=== PATIENT | female | born 1985 | race African-American/Black ===

== ENCOUNTER 2017-12-06 05:12 | Inpatient (IN) | payer OTHER ==
[2017-12-06 05:25] VITALS: BMI 25.9
--- NOTE | 2017-12-06 08:35 | PDOC ---
History of Present Illness - General Chief Complaint: Vaginal Bleeding Stated Complaint: ABD PAIN,19 WKS PREG Time Seen by Provider: 12/06/17 08:14 History Source: Patient Exam Limitations: No Limitations - History of Present Illness Initial Comments: 12/06/17 08:29 Patient is a 32 y/o female, here for evaluation of bleeding noted this a.m. while urinating. Small droplets noted in toilet. Patient reports that she is 19 weeks unsure thinks her LMP was 07/19/2017 1 para 0. Complaining of intermittent lower abdominal cramping and lower back pain. Patient denies any fever, no nausea vomiting or diarrhea, no other urinary symptoms. No fever. 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 Past Medical History: [Denies]. Allergies: No known allergies Medications: [] Family History: Non-contributory Social History: Denies smoking, alcohol use, or IVDU Vital signs on arrival are [notable for pulse of 102] Review of Systems GENERAL/CONSTITUTIONAL: [No fever or chills. No weakness. No weight change.] HEAD, EYES, EARS, NOSE AND THROAT: [No change in vision. No ear pain or discharge. No sore throat. ] CARDIOVASCULAR: [No chest pain or shortness of breath.] RESPIRATORY: [No cough, wheezing, or hemoptysis.] GASTROINTESTINAL: [No nausea, vomiting, diarrhea or constipation. No rectal bleeding.] GENITOURINARY: [No dysuria, frequency, or change in urination. Single episode of multiple bright red blood drops in toilet, no active bleeding] MUSCULOSKELETAL: [No joint or muscle swelling or pain. No neck or back pain.] SKIN AND BREASTS: [No rash or easy bruising.] NEUROLOGIC: [No headache, vertigo, loss of consciousness, or loss of sensation.] PSYCHIATRIC: [No depression or anxiety.] ENDOCRINE: [No increased thirst. No abnormal weight change.] HEMATOLOGIC/LYMPHATIC: [No anemia, easy bleeding, or history of blood clots.] ALLERGIC/IMMUNOLOGIC: [No hives or skin allergy. No latex allergy.] Physical Exam: GENERAL: [The patient is awake, alert, and fully oriented, in no acute distress. ] EYES: [Pupils equal, round and reactive to light, extraocular movements intact, sclera anicteric, conjunctiva clear.] ENT: [Ears normal, nares patent, oropharynx clear without exudates. Moist mucous membranes. No uvula deviation] NECK: [Normal range of motion, supple without lymphadenopathy, JVD, or masses.] LUNGS: [Breath sounds equal, clear to auscultation bilaterally. No wheezes, and no crackles.] HEART: [Regular rate and rhythm, normal S1 and S2 without murmur, rub or gallop. ] ABDOMEN: [Soft, gravid, nontender, normoactive bowel sounds. No guarding, no rebound. No bruising or abrasions] MUSCULOSKELETAL: [Normal range of motion, no edema. No clubbing or cyanosis. No cords, erythema, or tenderness. No CVA Tenderness with fist palpation.] NEUROLOGICAL: [Cranial nerves II through XII grossly intact. Normal speech, normal gait.] SKIN: [Warm, Dry, normal turgor, no rashes or lesions noted.] Past History - Past Medical History Allergies/Adverse Reactions: Allergies Allergy/AdvReac Type Severity Reaction Status Date / Time No Known Allergies Allergy Verified 12/06/17 05:23 Home Medications: Ambulatory Orders Vit/Iron Fum/Folic AC [ Tablet] 1 tab PO DAILY 12/06/17 - Suicide/Smoking/Psychosocial Hx Smoking History: Never smoked Have you smoked in the past 12 months: No Information on smoking cessation initiated: No Hx Alcohol Use: No Drug/Substance Use Hx: No *Physical Exam - Vital Signs Last Vital Signs Temp Pulse Resp BP Pulse Ox 98.5 F 102 H 14 122/68 100 12/06/17 05:23 12/06/17 05:23 12/06/17 05:23 12/06/17 05:23 12/06/17 05:23 ED Treatment Course - LABORATORY CBC & Chemistry Diagram: 12/06/17 08:27 - RADIOLOGY Radiology Studies Ordered: Category Date Time Status TRANSVAGINAL US PREG [US] Stat Ultrasound 12/06/17 08:15 Ordered Medical Decision Making - Medical Decision Making 12/06/17 08:34 A/P: Patient here for evaluation of abdominal cramping, and single episode of blood droplets in toilet this a.m. Denies any active bleeding. No nausea vomiting or diarrhea, no fever. Plan: Urinalysis, urine culture, beta hCG, CBC, CMP, PT PTT and type and screen ultrasound evaluate 12/06/17 11:25 Ultrasound demonstrated single intrauterine in breech presentation. There is no heart activity compatible with demise. Oligohydramnios with only a trace of amniotic fluid identified. Short uterine cervix without dilatation or funneling. Ceftriaxone 1 g IV ordered. I have called Dr. Patino to discuss case awaiting call back. Laboratory Results - last 24 hr 12/06/17 12/06/17 12/06/17 08:27 08:27 08:27 WBC 23.3 H RBC 4.13 Hgb 10.9 Hct 34.6 MCV 83.7 MCH 26.3 MCHC 31.5 L RDW 14.0 Plt Count 231 MPV 8.2 Neutrophils % 83.3 H Lymphocytes % 9.9 Monocytes % 6.4 Eosinophils % 0.3 Basophils % 0.1 PT with INR 11.10 INR 0.98 Beta HCG, Quant Urine Color Ltyellow Urine Appearance Slcloudy Urine pH 7.0 Ur Specific [place] 1.008 Urine Protein Negative Urine Glucose (UA) Negative Urine Ketones Negative Urine Blood 3+ H Urine Nitrite Negative Urine Bilirubin Negative Urine Urobilinogen Negative Ur Leukocyte Esterase 3+ H Urine WBC (Auto) 228 Urine RBC (Auto) 131 Ur Epithelial Cells Rare Blood Type Antibody Screen 12/06/17 12/06/17 08:27 08:27 WBC RBC Hgb Hct MCV MCH MCHC RDW Plt Count MPV Neutrophils % Lymphocytes % Monocytes % Eosinophils % Basophils % PT with INR INR Beta HCG, Quant 44464.9 Urine Color Urine Appearance Urine pH Ur Specific [place] Urine Protein Urine Glucose (UA) Urine Ketones Urine Blood Urine Nitrite Urine Bilirubin Urine Urobilinogen Ur Leukocyte Esterase Urine WBC (Auto) Urine RBC (Auto) Ur Epithelial Cells Blood Type O POSITIVE Antibody Screen Negative She was elevated white blood cell count with left shift. Leuks are +3 with WBCs of 228. *DC/Admit/Observation/Transfer Diagnosis at time of Disposition: Spontaneous miscarriage Urinary tract infection Qualifiers: Urinary tract infection type: site unspecified Hematuria presence: with hematuria Qualified Code(s): N39.0 - Urinary tract infection, site not specified - Discharge Dispostion Condition at time of disposition: Stable Admit: Yes - Referrals - Patient Instructions - Post Discharge Activity
[2017-12-06 08:57] LABS: URINE APPEARANCE SLCLOUDY; URINE BILIRUBIN NEGATIVE (NEGATIVE); URINE BLOOD 3+ (NEGATIVE); URINE COLOR LTYELLOW; URINE GLUCOSE (UA) NEGATIVE (NEGATIVE); URINE KETONE NEGATIVE (NEGATIVE); URINE NITRITE NEGATIVE (NEGATIVE); URINE PROTEIN NEGATIVE (NEGATIVE); URINE UROBILINOGEN NEGATIVE mg/dL (0.2-1.0)
--- NOTE | 2017-12-06 09:16 | PDOC ---
*Physical Exam - Vital Signs Last Vital Signs Temp Pulse Resp BP Pulse Ox 98.5 F 102 H 14 122/68 100 12/06/17 05:23 12/06/17 05:23 12/06/17 05:23 12/06/17 05:23 12/06/17 05:23 - Physical Exam Comments: 12/06/17 09:15 The patient was examined by [TRANSIT PLANNER Andolino] under my direct supervision. I personally evaluated the patient. I concur with the above findings and the plan of care. ED Treatment Course - LABORATORY CBC & Chemistry Diagram: 12/08/17 12:50 12/08/17 12:50 *DC/Admit/Observation/Transfer Diagnosis at time of Disposition: Spontaneous miscarriage, Urinary tract infection - Discharge Dispostion Condition at time of disposition: Stable - Referrals - Patient Instructions - Post Discharge Activity
[2017-12-06 09:17] LABS: BASO % 0.1 % (0-2.0); EOS % 0.3 % (0-4.5); HEMATOCRIT 34.6 % (32.4-45.2); HEMOGLOBIN 10.9 GM/dL (10.7-15.3); LYMPH % 9.9 % (8-40); MCH 26.3 pg (25.7-33.7); MCHC 31.5 g/dl (32.0-36.0); MEAN CELL VOLUME 83.7 fl (80-96); MEAN PLT VOLUME 8.2 fl (7.5-11.1); MONO % 6.4 % (3.8-10.2); NEUT % 83.3 % (42.8-82.8); PLATELET COUNT 231 K/MM3 (134-434); RBC 4.13 M/mm3 (3.60-5.2); WHITE BLOOD COUNT 23.3 K/mm3 (4.0-10.0)
[2017-12-06 09:28] LABS: URINE LEUK ESTERASE 3+ (NEGATIVE)
[2017-12-06 09:40] LABS: INR 0.98 (0.82-1.09); PROTHROMBIN TIME (PATIENT) 11.1 SEC (9.98-11.88)
[2017-12-06 09:53] LABS: EPI CELLS RARE /HPF (FEW)
[2017-12-06] MEDS ORDERED: CEFTRIAXONE 1 GM in DEXTROSE 5%-WATER - 50 ML IVPB ONE (10:13)
[2017-12-06] MEDS ORDERED: CEFTRIAXONE 1 GM/50 ML BAG ONE (10:45)
[2017-12-06] MEDS ORDERED: ACETAMINOPHEN INJECTION 100 ML IVPB ONE (14:03)
[2017-12-06] MEDS: ELECTROLYTE-148 SOLN 1,000 ML IV SCH (14:10)
[2017-12-06] MEDS ORDERED: ACETAMINOPHEN 1000 MG/100 ML VIAL (NON FORMULARY) IVPB ONE (14:45)
--- NOTE | 2017-12-06 15:13 | HP ---
Past Medical History - Admission Chief Complaint: Rupture of membrane History of Present Illness: 32 yo @ 19 weeks gestation, presents to ER c/o rupture of membrane at home. Patient denied any fever nor shortness of breath. A sonogram was done in ER and there was evidence of demise. Also CBC showed evidence of leukocytosis. Patient was admitted to L&D for IOL. History Source: Patient Limitations to Obtaining History: No Limitations - Past Medical History ...: 1 ...Para: 0 ...Term: 0 ...: 0 ...Spon : 0 ...Induced : 0 ...Multiple Gestation: 0 ...LMP: 07/19/17 ... Weeks Gestation by Dates: 20.0 ...EDC by Dates: 04/25/18 ...EDC by Sono: 04/25/18 - Past Surgical History Past Surgical History: Yes: None Hx Myomectomy: No Hx Transabdominal Cerclage: No - Smoking History Smoking history: Never smoked Have you smoked in the past 12 months: No - Alcohol/Substance Use Hx Alcohol Use: No History of Substance Use: reports: None - Social History Usual Living Arrangement: Yes: With Spouse Home Medications - Allergies Allergies/Adverse Reactions: Allergies Allergy/AdvReac Type Severity Reaction Status Date / Time No Known Allergies Allergy Verified 12/06/17 05:23 - Home Medications Home Medications: Ambulatory Orders Vit/Iron Fum/Folic AC [ Tablet] 1 tab PO DAILY 12/06/17 Review of Systems - Review of Systems Constitutional: reports: Fever. denies: Chills, Night Sweats Eyes: reports: No Symptoms HENT: reports: No Symptoms Neck: reports: No Symptoms Cardiovascular: reports: No Symptoms Respiratory: reports: No Symptoms Gastrointestinal: reports: No Symptoms Genitourinary: reports: Other (Leakage of fluid) Breasts: reports: No Symptoms Reported Musculoskeletal: reports: No Symptoms Neurological: reports: No Symptoms Endocrine: reports: No Symptoms Hematology/Lymphatic: reports: No Symptoms Psychiatric: reports: No Symptoms Pain Intensity: 2 Physical Exam - Maternity Vital Signs: Vital Signs Temperature 103 F H 12/06/17 14:18 Pulse Rate 148 H 12/06/17 14:18 Respiratory Rate 20 12/06/17 14:18 Blood Pressure 116/62 12/06/17 14:18 O2 Sat by Pulse Oximetry (%) 99 12/06/17 13:20 Constitutional: Yes: Well Nourished Eyes: Yes: Conjunctiva Clear HENT: Yes: Atraumatic Neck: Yes: Supple Cardiovascular: Yes: Regular Rate and Rhythm Lungs: Clear to auscultation - Abdominal Exam/OB Number of Fetuses: Single Presentation: Vertex - Vaginal Exam/OB Vaginal Bleediing: No Dilatation (cm): 2 Amniotic Membrane Status: Ruptured Station: -2 - Physical Exam Musculoskeletal: Yes: WNL Extremities: Yes: WNL ...Motor Strength: WNL Psychiatric: Yes: Alert, Oriented - Labs Lab Results: CBC, BMP 12/06/17 08:27 Problem List - Problems (1) demise before 20 weeks with retention of fetus Code(s): O02.1 - MISSED (2) Fever Code(s): R50.9 - FEVER, UNSPECIFIED Qualifiers: Fever type: due to other condition Qualified Code(s): R50.81 - Fever presenting with conditions classified elsewhere Assessment/Plan IUP @ 19 weeks demise Admit to L&D for IOL and IV antibiotic ID consult
[2017-12-06] MEDS ORDERED: PIPERACILLIN/TAZOB 4.5 GM 4.5 GM in DEXTROSE 5%-WATER - 100 ML IVPB ONE (16:15)
[2017-12-06] MEDS ORDERED: BUTORPHANOL TARTRATE 1 MG/ML VIAL ONE ×2 (16:21)
[2017-12-06] MEDS ORDERED: PROMETHAZINE HCL 25 MG/1 ML VIAL ONE (16:22)
[2017-12-06] MEDS ORDERED: MISOPROSTOL 200 MCG TABLET PV SCH (17:30)
[2017-12-06] MEDS ORDERED: BUTORPHANOL TARTRATE 1 MG/ML VIAL IVPUSH ONE (17:45)
[2017-12-06] MEDS ORDERED: PROMETHAZINE HCL 25 MG/1 ML VIAL IVPUSH ONE (17:45)
[2017-12-06] MEDS: OXYTOCIN 20 UNITS in 0.9% NS 20 UNIT/1,000 ML INFUS.BAG IV SCH ×2 (17:50→19:30)
[2017-12-06] MEDS ORDERED: OXYTOCIN 20 UNITS in 0.9% NS 20 UNIT/1,000 ML INFUS.BAG IV ONE ×2 (17:55→19:07)
[2017-12-06] MEDS ORDERED: PIPERACILLIN/TAZOB 4.5 GM/100 ML PREMIX BAG IVPB SCH (18:00)
[2017-12-06] MEDS ORDERED: WITCH HAZEL 50% (TUCKS) 40 PAD/JAR PAD TP PRN (18:05)
[2017-12-06] MEDS ORDERED: BENZOCAINE 20% 57 GM BOTTLE TP PRN (18:05)
[2017-12-06] MEDS ORDERED: BISACODYL 10 MG SUPP.RECT RC PRN (18:05)
[2017-12-06] MEDS ORDERED: METHYLERGONOVINE MALEATE 0.2 MG/1 ML AMP IM PRN (18:05)
[2017-12-06] MEDS ORDERED: BENZOCAINE 28 GM HEMORRHOIDAL OINTMENT TP PRN (18:05)
--- NOTE | 2017-12-06 18:16 | PN ---
Delivery - Delivery Vaginal Delivery: Spontaneous Episiotomy/Laceration: None EBL (cc): 50 Delivery, Single - Stages of Labor Date 1st Stage Initiatied: 12/06/17 Time 1st Stage Initiated: 05:00 Date of Delivery: 12/06/17 Time of Delivery: 17:11 Time Placenta Delivered: 17:50 - Condition of Infant Infant Gender: Female Weight: 9.912 oz Total Hours ROM (Hrs/Mins): 12h 20min - 1 Minute Total Score: 0 5 Minutes Total Score: 0 Remarks - Remarks Remarks: Normal spontaneous vaginal delivery of a demise over intact perineum. Placenta expelled spontaneously with fetus. No laceration noted.
--- NOTE | 2017-12-06 18:55 | CON.ID ---
Consult Consult Specialty:: infectious diseases Reason for Consultation:: fever,sepsis - History of Present Illness Chief Complaint: fever weakness History of Present Illness: 32 yo @ 19 weeks gestation, presents to ER c/o rupture of membrane at home. Patient denied any fever nor shortness of breath. A sonogram was done in ER and there was evidence of demise. Also CBC showed evidence of leukocytosis. Patient was admitted underwent removal of fetus according tot he staff patient had no retained products minimal bleeding patient spiking fever and tachy - History Source History Provided By: Patient Limitations to Obtaining History: No Limitations - Past Surgical History Past Surgical History: Yes: None - Alcohol/Substance Use Hx Alcohol Use: No History of Substance Use: reports: None - Smoking History Smoking history: Never smoked Have you smoked in the past 12 months: No Home Medications - Allergies Allergies/Adverse Reactions: Allergies Allergy/AdvReac Type Severity Reaction Status Date / Time No Known Allergies Allergy Verified 12/06/17 05:23 - Home Medications Home Medications: Ambulatory Orders Vit/Iron Fum/Folic AC [ Tablet] 1 tab PO DAILY 12/06/17 Review of Systems - Review of Systems Constitutional: reports: Fever Eyes: reports: No Symptoms HENT: reports: No Symptoms Neck: reports: No Symptoms Cardiovascular: reports: No Symptoms Respiratory: reports: No Symptoms Gastrointestinal: reports: No Symptoms Genitourinary: reports: No Symptoms Musculoskeletal: reports: No Symptoms Integumentary: reports: No Symptoms Neurological: reports: No Symptoms Endocrine: reports: No Symptoms Hematology/Lymphatic: reports: No Symptoms Psychiatric: reports: No Symptoms Physical Exam Vital Signs: Vital Signs Temperature 99.2 F 12/06/17 18:00 Pulse Rate 123 H 12/06/17 18:45 Respiratory Rate 18 12/06/17 18:45 Blood Pressure 87/57 12/06/17 18:45 O2 Sat by Pulse Oximetry (%) 100 12/06/17 18:45 Constitutional: Yes: Well Nourished, No Distress Eyes: Yes: Conjunctiva Clear Neck: Yes: Supple, Trachea Midline Cardiovascular: Yes: Regular Rate and Rhythm Respiratory: Yes: Regular, CTA Bilaterally Gastrointestinal: Yes: Normal Bowel Sounds, Soft Musculoskeletal: Yes: WNL Extremities: Yes: WNL Neurological: Yes: Alert, Oriented Psychiatric: Yes: Alert, Oriented Labs: CBC, BMP 12/06/17 08:27 Imaging - Results Ultrasound: Report Reviewed Assessment/Plan Problem List - Problems (1) demise before 20 weeks with retention of fetus Code(s): O02.1 - MISSED (2) Fever Code(s): R50.9 - FEVER, UNSPECIFIED Qualifiers: Fever type: due to other condition Qualified Code(s): R50.81 - Fever presenting with conditions classified elsewhere leukocytosis patient has received zosyn plan will continue zosyn will send stat bmp await for all cx reports close monitoring for fevers
[2017-12-06 20:55] LABS: ANION GAP 11 (8-16); BLOOD UREA NITROGEN 5 mg/dL (7-18); CALCIUM 8.5 mg/dL (8.5-10.1); CHLORIDE 102 mmol/L (98-107); CO2 22 mmol/L (21-32); CREATININE 0.8 mg/dL (0.55-1.02); GLUCOSE,RANDOM 77 mg/dL (74-106); POTASSIUM 3.4 mmol/L (3.5-5.1); SODIUM 135 mmol/L (136-145)
--- NOTE | 2017-12-07 00:45 | PN ---
Post Progress Note - Subjective Subjective: 32yo status post delivery of a demise, seen and evaluated. Doing well. She's afebrile. She's on Zosyn and pulse has improved. Post Day: 1 Type of Delivery: Vital Signs: Vital Signs Temperature 98.0 F 12/07/17 00:00 Pulse Rate 104 H 12/07/17 00:00 Respiratory Rate 18 12/07/17 00:00 Blood Pressure 93/61 12/07/17 00:00 O2 Sat by Pulse Oximetry (%) 100 12/06/17 18:45 Breast Exam: Yes: Soft Uterus: Yes: Fundus Firm Lochia: Yes: Rubra Lochia, amount: Small Extremities: Yes: Calves non-tender Perineum: Yes: Intact Activity: Ambulating - Labs Labs: CBC WBC 23.3 K/mm3 (4.0-10.0) H 12/06/17 08:27 RBC 4.13 M/mm3 (3.60-5.2) 12/06/17 08:27 Hgb 10.9 GM/dL (10.7-15.3) 12/06/17 08:27 Hct 34.6 % (32.4-45.2) 12/06/17 08:27 MCV 83.7 fl (80-96) 12/06/17 08:27 MCH 26.3 pg (25.7-33.7) 12/06/17 08:27 MCHC 31.5 g/dl (32.0-36.0) L 12/06/17 08:27 RDW 14.0 % (11.6-15.6) 12/06/17 08:27 Plt Count 231 K/MM3 (134-434) 12/06/17 08:27 MPV 8.2 fl (7.5-11.1) 12/06/17 08:27 Neutrophils % 83.3 % (42.8-82.8) H 12/06/17 08:27 Lymphocytes % 9.9 % (8-40) 12/06/17 08:27 Monocytes % 6.4 % (3.8-10.2) 12/06/17 08:27 Eosinophils % 0.3 % (0-4.5) 12/06/17 08:27 Basophils % 0.1 % (0-2.0) 12/06/17 08:27 Problem List - Problems (1) demise before 20 weeks with retention of fetus Code(s): O02.1 - MISSED (2) Fever Code(s): R50.9 - FEVER, UNSPECIFIED Qualifiers: Fever type: due to other condition Qualified Code(s): R50.81 - Fever presenting with conditions classified elsewhere (3) Status post vaginal delivery Code(s): [id number] - Assessment/Plan Status post delivery of a demise Chorio Amnionitis Fever Continue antibiotic Regular diet F/U ID consult
[2017-12-07] MEDS ORDERED: PIPERACILLIN/TAZOB 3.375 GM 3.375 GM in DEXTROSE 5%-WATER - 100 ML IVPB ONE (02:00)
[2017-12-07 08:34] LABS: HEMATOCRIT 28.2 % (32.4-45.2); MCH 26.6 pg (25.7-33.7); MCHC 31.9 g/dl (32.0-36.0); MEAN CELL VOLUME 83.3 fl (80-96); MEAN PLT VOLUME 8.2 fl (7.5-11.1); PLATELET COUNT 167 K/MM3 (134-434); RBC 3.39 M/mm3 (3.60-5.2); RDW 13.9 % (11.6-15.6)
[2017-12-07 09:01] LABS: WHITE BLOOD COUNT 30.1 K/mm3 (4.0-10.0)
[2017-12-07] MEDS ORDERED: ELECTROLYTE-148 SOLN 1,000 ML IV SCH (09:45)
[2017-12-07] MEDS: PIPERACILLIN/TAZOB 3.375 GM 3.375 GM in DEXTROSE 5%-WATER - 100 ML IVPB SCH ×2 (09:49→18:06)
[2017-12-07] MEDS: ACETAMINOPHEN 325 MG TABLET (FP) PO PRN (09:52)
[2017-12-07] MEDS: IBUPROFEN 600 MG TABLET (FP) PO PRN (09:53)
[2017-12-07 11:49] LABS: ACANTHOCYTES 0; ANISOCYTOSIS 0; HELMET CELLS 0; HOWELL-JOLLY BODIES 0; MACROCYTOSIS 0; OVALOCYTE 0; PLATELET ESTIMATE NORMAL; SICKELED CELLS 0; TARGET CELLS 0; TEAR DROP CELLS 0; TOXIC GRANULATION 0
--- NOTE | 2017-12-07 13:40 | PN ---
Progress Note, Physician History of Present Illness: stable c/o of increased swelling of lips calm - Current Medication List Current Medications: Active Medications Acetaminophen (Tylenol -) 650 mg PO Q3H PRN PRN Reason: PAIN Last Admin: 12/07/17 09:52 Dose: 650 mg Benzocaine (Americaine 20% [place] -) 1 spray TP DAILY PRN PRN Reason: PAIN Benzocaine (Americaine Ointment -) 1 applic TP DAILY PRN PRN Reason: PAIN Bisacodyl (Dulcolax Suppository -) 10 mg RC DAILY PRN PRN Reason: CONSTIPATION Parenteral Electrolytes (Plasma-Lyte 148 -) 1,000 mls @ 125 mls/hr IV ASDIR [facility] Last Admin: 12/06/17 14:10 Dose: 125 mls/hr Oxytocin/Sodium Chloride (Normal Saline+20 Units Oxytocin -) 20 unit in 1,000 mls @ 125 mls/hr IV ASDIR [facility] Last Admin: 12/06/17 19:30 Dose: 125 mls/hr Piperacillin Sod/Tazobactam (Sod 3.375 gm/ Dextrose) 100 mls @ 200 mls/hr IVPB Q8H-IV JEANNINE PRN Reason: Protocol Last Admin: 12/07/17 09:49 Dose: 200 mls/hr Parenteral Electrolytes (Plasma-Lyte 148 -) 1,000 mls @ 125 mls/hr IV ASDIR [facility] Ibuprofen (Motrin -) 600 mg PO Q4H PRN PRN Reason: PAIN Last Admin: 12/07/17 09:53 Dose: 600 mg Methylergonovine Maleate (Methergine Injection -) 0.2 mg IM Q4H PRN PRN Reason: EXCESSIVE BLEEDING (L&D) Senna/Docusate Sodium (Pericolace -) 2 tablet PO HS PRN PRN Reason: CONSTIPATION Witch Marily/Glycerin (Tucks Pads -) 1 pad TP DAILY PRN PRN Reason: PAIN - Objective Vital Signs: Vital Signs Temperature 98 F 12/07/17 10:00 Pulse Rate 97 H 12/07/17 10:00 Respiratory Rate 20 12/07/17 10:00 Blood Pressure 84/48 12/07/17 10:00 O2 Sat by Pulse Oximetry (%) 100 12/06/17 18:45 Constitutional: Yes: No Distress, Calm Neck: Yes: Supple Cardiovascular: Yes: Regular Rate and Rhythm Respiratory: Yes: Regular, CTA Bilaterally Gastrointestinal: Yes: Normal Bowel Sounds, Soft Musculoskeletal: Yes: WNL Extremities: Yes: WNL Neurological: Yes: Alert, Oriented Psychiatric: Yes: Alert, Oriented Labs: CBC, BMP 12/07/17 07:45 12/06/17 20:15 INR, PTT INR 0.98 (0.82-1.09) 12/06/17 08:27 Assessment/Plan Problem List - Problems (1) demise before 20 weeks with retention of fetus Code(s): O02.1 - MISSED (2) Fever Code(s): R50.9 - FEVER, UNSPECIFIED Qualifiers: Fever type: due to other condition Qualified Code(s): R50.81 - Fever presenting with conditions classified elsewhere leukocytosis continue current mgtm await for wbc plan continue current mgmt monitor wbc closely if it increases then we will have to figure out why rest as per primary
[2017-12-07] MEDS: ELECTROLYTE-148 SOLN 1,000 ML IV SCH (18:30)
[2017-12-07] MEDS ORDERED: SENNOSIDES/DOCUSATE COMBO (SENNA PLUS) TABLET (UD) PO PRN (22:00)
[2017-12-08] MEDS: PIPERACILLIN/TAZOB 3.375 GM 3.375 GM in DEXTROSE 5%-WATER - 100 ML IVPB SCH ×3 (01:18→18:29)
--- NOTE | 2017-12-08 12:22 | PN ---
Progress Note, Physician History of Present Illness: stable wbc has increased - Current Medication List Current Medications: Active Medications Acetaminophen (Tylenol -) 650 mg PO Q3H PRN PRN Reason: PAIN Last Admin: 12/07/17 09:52 Dose: 650 mg Benzocaine (Americaine 20% [place] -) 1 spray TP DAILY PRN PRN Reason: PAIN Benzocaine (Americaine Ointment -) 1 applic TP DAILY PRN PRN Reason: PAIN Bisacodyl (Dulcolax Suppository -) 10 mg RC DAILY PRN PRN Reason: CONSTIPATION Parenteral Electrolytes (Plasma-Lyte 148 -) 1,000 mls @ 125 mls/hr IV ASDIR [facility] Last Admin: 12/07/17 18:30 Dose: 125 mls/hr Oxytocin/Sodium Chloride (Normal Saline+20 Units Oxytocin -) 20 unit in 1,000 mls @ 125 mls/hr IV ASDIR [facility] Last Admin: 12/06/17 19:30 Dose: 125 mls/hr Piperacillin Sod/Tazobactam (Sod 3.375 gm/ Dextrose) 100 mls @ 200 mls/hr IVPB Q8H-IV JEANNINE PRN Reason: Protocol Last Admin: 12/08/17 09:09 Dose: 200 mls/hr Parenteral Electrolytes (Plasma-Lyte 148 -) 1,000 mls @ 125 mls/hr IV ASDIR [facility] Last Admin: 12/07/17 10:00 Dose: 125 mls/hr Ibuprofen (Motrin -) 600 mg PO Q4H PRN PRN Reason: PAIN Last Admin: 12/07/17 09:53 Dose: 600 mg Methylergonovine Maleate (Methergine Injection -) 0.2 mg IM Q4H PRN PRN Reason: EXCESSIVE BLEEDING (L&D) Senna/Docusate Sodium (Pericolace -) 2 tablet PO HS PRN PRN Reason: CONSTIPATION Witch Marily/Glycerin (Tucks Pads -) 1 pad TP DAILY PRN PRN Reason: PAIN - Objective Vital Signs: Vital Signs Temperature 97.5 F L 12/08/17 06:00 Pulse Rate 81 12/08/17 06:00 Respiratory Rate 20 12/08/17 06:00 Blood Pressure 96/59 12/08/17 06:00 O2 Sat by Pulse Oximetry (%) 100 12/06/17 18:45 Constitutional: Yes: No Distress, Calm HENT: Yes: Other (swelling of the lips) Cardiovascular: Yes: Regular Rate and Rhythm Respiratory: Yes: Regular, CTA Bilaterally Gastrointestinal: Yes: Normal Bowel Sounds, Soft Musculoskeletal: Yes: WNL Extremities: Yes: WNL Neurological: Yes: Alert, Oriented Psychiatric: Yes: Alert, Oriented Labs: CBC, BMP 12/07/17 07:45 12/06/17 20:15 INR, PTT INR 0.98 (0.82-1.09) 12/06/17 08:27 Assessment/Plan Problem List - Problems (1) demise before 20 weeks with retention of fetus Code(s): O02.1 - MISSED (2) Fever Code(s): R50.9 - FEVER, UNSPECIFIED Qualifiers: Fever type: due to other condition Qualified Code(s): R50.81 - Fever presenting with conditions classified elsewhere leukocytosis wbc keeps plan continue current mgmt will see thw wbc tomorrow and decide
[2017-12-08 13:07] LABS: HEMOGLOBIN 8.8 GM/dL (10.7-15.3); MCHC 31.3 g/dl (32.0-36.0); MEAN CELL VOLUME 83.3 fl (80-96); PLATELET COUNT 208 K/MM3 (134-434); RBC 3.36 M/mm3 (3.60-5.2); RDW 14.3 % (11.6-15.6)
[2017-12-08 13:17] LABS: WHITE BLOOD COUNT 33.2 K/mm3 (4.0-10.0)
[2017-12-08 13:37] LABS: ANION GAP 10 (8-16); BLOOD UREA NITROGEN 13 mg/dL (7-18); CALCIUM 8.2 mg/dL (8.5-10.1); CHLORIDE 106 mmol/L (98-107); CO2 26 mmol/L (21-32); CREATININE 0.7 mg/dL (0.55-1.02); GLUCOSE,RANDOM 121 mg/dL (74-106); POTASSIUM 3.7 mmol/L (3.5-5.1); SODIUM 142 mmol/L (136-145)
[2017-12-08] MEDS: IBUPROFEN 600 MG TABLET (FP) PO PRN (14:57)
[2017-12-08] MEDS: ACETAMINOPHEN 325 MG TABLET (FP) PO PRN (14:57)
[2017-12-08] MEDS: ELECTROLYTE-148 SOLN 1,000 ML IV SCH (15:13)
--- NOTE | 2017-12-08 15:46 | PATH ---
Surgical Pathology Report Patient Name: LIAM GRIFFIN [facility]. Rec. #: [id number] /Age/Gender: 1985 (Age: 32) / F Account: [id number] Location: [facility] OBS/CALL OR CONTACT CENTRE MANAGER Taken: 12/06/2017 Received: 12/07/2017 Reported: 12/08/2017 Physicians: Elizabeth Patino M.D. Specimen(s) Received A: FETUS, WITH DISSECTION B: PLACENTA Clinical History , 20 weeks by dates, 18.2 by sonogram 12/06/17 demise, chorioamnionitis Final Diagnosis A. FETUS, DELIVERY: IMMATURE FEMALE FETUS, 256 GRAMS, WITH AUTOLYTIC CHANGES. NO INTERNAL OR EXTERNAL CONGENITAL ABNORMALITIES IDENTIFIED. B. PLACENTA, DELIVERY: IMMATURE PLACENTA, 101 GRAM, WITH ACUTE CHORIOAMNIONITIS, AREAS OF ACUTE VILLITIS, AND 3 VESSEL UMBILICAL CORD. Electronically Signed Alexis Benson M.D. Gross Description A. received in formalin labeled "fetus," is a 256 g intact fetus. The fetus measures 17 cm from crown to rump and 25 cm from head to toe. Each foot measures 3.1 cm from heel to toe. The anus and nares are patent. The eyelids are fused shut. There is a 6.5 cm in length x 0.5 cm in diameter red-brown, dusky umbilical cord attached. The cord displays 3 vessels. The skin is mildly macerated. The upper and lower extremities are well proportioned, without any bony defects. There are no axial defects and the lumbosacral spine is intact. The heart and lungs are normally positioned and no abnormalities are noted. The abdominal organs are markedly autolyzed. The external genitalia are well formed and that of a female. The brain is markedly autolyzed. Capacitor Pack Press Operator sections are submitted in 5 cassettes as follows: 1-umbilical cord, grams, heart, lungs, thymus; 2-spleen, liver, intestines; 3-ovaries; 4-kidneys/adrenals; 5-brain. B. The specimen is received fresh labeled placenta and is a 101 gram, 11.3 x 8.2 x 1.5 cm. placenta with attached membranes and umbilical cord. The attached membranes are to, thick, cloudy and insert marginally. The red-brown, dusky umbilical cord measures 11.5 cm. in length and averages 0.6 cm. in diameter. The cord inserts eccentrically, 1 cm. to the nearest margin. No true knots or strictures are identified. Cut surface of the umbilical cord reveals 3 vessels. The surface is [place] blue with minimal fibrin deposition and small caliber vessels. The maternal surface is red-brown and intact. Sectioning reveals red-brown, spongy parenchyma. No lesions are identified. Capacitor Pack Press Operator sections are submitted in 4 cassettes as follows: 1- membrane rolls and umbilical cord; 2- 4 - full thickness sections of placenta. 12/07/[address] [facility]12/07/2017
--- NOTE | 2017-12-08 22:46 | PN ---
Progress Note (short form) - Note Progress Note: s/p 19 weeks demised vaginal delivery , pp sepsis doing well ,no c/o does not appear toxic Last Vital Signs Temp Pulse Resp BP Pulse Ox 98 F 82 20 96/50 100 12/08/17 18:00 12/08/17 18:00 12/08/17 18:00 12/08/17 18:00 12/06/17 18:45 CBC, BMP 12/08/17 12:50 12/08/17 12:50 abdomen soft, uterus non tender ,no cva lochia mild plan cont iv antibiotic
[2017-12-09 01:07] LABS: ANISOCYTOSIS 1+
[2017-12-09 01:08] LABS: PLATELET ESTIMATE ADEQUATE
[2017-12-09] MEDS: PIPERACILLIN/TAZOB 3.375 GM 3.375 GM in DEXTROSE 5%-WATER - 100 ML IVPB SCH ×2 (01:35→09:10)
[2017-12-09] MEDS: ELECTROLYTE-148 SOLN 1,000 ML IV SCH (01:35)
[2017-12-09 08:54] LABS: HEMATOCRIT 29.1 % (32.4-45.2); HEMOGLOBIN 9.3 GM/dL (10.7-15.3); MCH 26.8 pg (25.7-33.7); MCHC 32.2 g/dl (32.0-36.0); MEAN CELL VOLUME 83.3 fl (80-96); MEAN PLT VOLUME 8.3 fl (7.5-11.1); PLATELET COUNT 218 K/MM3 (134-434); RBC 3.49 M/mm3 (3.60-5.2); RDW 13.8 % (11.6-15.6); WHITE BLOOD COUNT 21.6 K/mm3 (4.0-10.0)
[2017-12-09 10:13] LABS: PLATELET ESTIMATE NORMAL
--- NOTE | 2017-12-09 14:49 | PN ---
Progress Note, Physician History of Present Illness: stable patient has developed vesicles on the lips wbc trending down - Current Medication List Current Medications: Active Medications Acetaminophen (Tylenol -) 650 mg PO Q3H PRN PRN Reason: PAIN Last Admin: 12/08/17 14:57 Dose: 650 mg Benzocaine (Americaine 20% [place] -) 1 spray TP DAILY PRN PRN Reason: PAIN Benzocaine (Americaine Ointment -) 1 applic TP DAILY PRN PRN Reason: PAIN Bisacodyl (Dulcolax Suppository -) 10 mg RC DAILY PRN PRN Reason: CONSTIPATION Parenteral Electrolytes (Plasma-Lyte 148 -) 1,000 mls @ 125 mls/hr IV [facility] Last Admin: 12/09/17 01:35 Dose: 125 mls/hr Oxytocin/Sodium Chloride (Normal Saline+20 Units Oxytocin -) 20 unit in 1,000 mls @ 125 mls/hr [facility] Last Admin: 12/06/17 19:30 Dose: 125 mls/hr Parenteral Electrolytes (Plasma-Lyte 148 -) 1,000 mls @ 125 mls/hr IV [facility] Last Admin: 12/07/17 10:00 Dose: 125 mls/hr Piperacillin Sod/Tazobactam (Sod 3.375 gm/ Dextrose) 50 mls @ 100 mls/hr IVPB Q8H-IV [facility] PRN Reason: Protocol Ibuprofen (Motrin -) 600 mg PO Q4H PRN PRN Reason: PAIN Last Admin: 12/08/17 14:57 Dose: 600 mg Methylergonovine Maleate (Methergine Injection -) 0.2 mg IM Q4H PRN PRN Reason: EXCESSIVE BLEEDING (L&D) Senna/Docusate Sodium (Pericolace -) 2 tablet PO HS PRN PRN Reason: CONSTIPATION Witch Marily/Glycerin (Tucks Pads -) 1 pad TP DAILY PRN PRN Reason: PAIN - Objective Vital Signs: Vital Signs Temperature 97.7 F 12/09/17 09:00 Pulse Rate 76 12/09/17 09:00 Respiratory Rate 20 12/09/17 09:00 Blood Pressure 121/79 12/09/17 09:00 O2 Sat by Pulse Oximetry (%) 100 12/06/17 18:45 Constitutional: Yes: No Distress, Calm Cardiovascular: Yes: Regular Rate and Rhythm Respiratory: Yes: Regular, CTA Bilaterally Gastrointestinal: Yes: Normal Bowel Sounds, Soft Musculoskeletal: Yes: WNL Extremities: Yes: WNL Neurological: Yes: Alert, Oriented Psychiatric: Yes: Alert, Oriented Labs: CBC, BMP 12/09/17 07:55 12/08/17 12:50 INR, PTT INR 0.98 (0.82-1.09) 12/06/17 08:27 Assessment/Plan Problem List - Problems (1) demise before 20 weeks with retention of fetus Code(s): O02.1 - MISSED (2) Fever Code(s): R50.9 - FEVER, UNSPECIFIED Qualifiers: Fever type: due to other condition Qualified Code(s): R50.81 - Fever presenting with conditions classified elsewhere leukocytosis herpes wbc trending down plan continue current mgmt will add valtrex
[2017-12-09] MEDS: PIPERACILLIN/TAZOB 3.375 GM 3.375 GM in DEXTROSE 5%-WATER - 50 ML IVPB SCH (17:47)
[2017-12-09] MEDS: valACYclovir HCL 500 MG TABLET (FP) PO SCH (22:24)
[2017-12-10] MEDS: PIPERACILLIN/TAZOB 3.375 GM 3.375 GM in DEXTROSE 5%-WATER - 50 ML IVPB SCH ×3 (01:06→17:37)
[2017-12-10] MEDS: valACYclovir HCL 500 MG TABLET (FP) PO SCH ×2 (09:30→21:36)
--- NOTE | 2017-12-10 10:57 | PN ---
Progress Note, Physician History of Present Illness: doing well no complaints swelling of the lips much better wbc trending down - Current Medication List Current Medications: Active Medications Acetaminophen (Tylenol -) 650 mg PO Q3H PRN PRN Reason: PAIN Last Admin: 12/08/17 14:57 Dose: 650 mg Benzocaine (Americaine 20% [place] -) 1 spray TP DAILY PRN PRN Reason: PAIN Benzocaine (Americaine Ointment -) 1 applic TP DAILY PRN PRN Reason: PAIN Bisacodyl (Dulcolax Suppository -) 10 mg RC DAILY PRN PRN Reason: CONSTIPATION Parenteral Electrolytes (Plasma-Lyte 148 -) 1,000 mls @ 125 mls/hr IV [facility] Last Admin: 12/09/17 01:35 Dose: 125 mls/hr Oxytocin/Sodium Chloride (Normal Saline+20 Units Oxytocin -) 20 unit in 1,000 mls @ 125 mls/hr IV [facility] Last Admin: 12/06/17 19:30 Dose: 125 mls/hr Parenteral Electrolytes (Plasma-Lyte 148 -) 1,000 mls @ 125 mls/hr IV [facility] Last Admin: 12/07/17 10:00 Dose: 125 mls/hr Piperacillin Sod/Tazobactam (Sod 3.375 gm/ Dextrose) 50 mls @ 100 mls/hr IVPB Q8H-IV [facility] PRN Reason: Protocol Last Admin: 12/10/17 09:29 Dose: 100 mls/hr Ibuprofen (Motrin -) 600 mg PO Q4H PRN PRN Reason: PAIN Last Admin: 12/08/17 14:57 Dose: 600 mg Methylergonovine Maleate (Methergine Injection -) 0.2 mg IM Q4H PRN PRN Reason: EXCESSIVE BLEEDING (L&D) Senna/Docusate Sodium (Pericolace -) 2 tablet PO HS PRN PRN Reason: CONSTIPATION Valacyclovir HCl (Valtrex -) 500 mg PO BID [facility] Last Admin: 12/10/17 09:30 Dose: 500 mg Witch Marily/Glycerin (Tucks Pads -) 1 pad TP DAILY PRN PRN Reason: PAIN - Objective Vital Signs: Vital Signs Temperature 99.2 F 12/10/17 07:10 Pulse Rate 69 12/10/17 07:10 Respiratory Rate 18 18 07:10 Blood Pressure 135/84 12/10/17 07:10 O2 Sat by Pulse Oximetry (%) 100 12/06/17 18:45 Constitutional: Yes: No Distress, Calm Cardiovascular: Yes: Regular Rate and Rhythm Respiratory: Yes: Regular, CTA Bilaterally Gastrointestinal: Yes: Normal Bowel Sounds, Soft Extremities: Yes: WNL Neurological: Yes: Alert, Oriented Psychiatric: Yes: Alert, Oriented Labs: CBC, BMP 12/09/17 07:55 12/08/17 12:50 INR, PTT INR 0.98 (0.82-1.09) 12/06/17 08:27 Assessment/Plan Problem List - Problems (1) demise before 20 weeks with retention of fetus Code(s): O02.1 - MISSED (2) Fever Code(s): R50.9 - FEVER, UNSPECIFIED Qualifiers: Fever type: due to other condition Qualified Code(s): R50.81 - Fever presenting with conditions classified elsewhere leukocytosis herpes wbc trending down plan continue current mgmt will add valtrex if wbc trends down will change to oral abx if wbc increases then please do trans vaginal u/s
[2017-12-10 11:34] LABS: HEMATOCRIT 32.4 % (32.4-45.2); HEMOGLOBIN 10.3 GM/dL (10.7-15.3); MCH 26.5 pg (25.7-33.7); MCHC 31.9 g/dl (32.0-36.0); MEAN PLT VOLUME 7.4 fl (7.5-11.1); PLATELET COUNT 243 K/MM3 (134-434); RDW 13.9 % (11.6-15.6); WHITE BLOOD COUNT 14.9 K/mm3 (4.0-10.0)
[2017-12-10 11:54] LABS: ANION GAP 7 (8-16); BLOOD UREA NITROGEN 9 mg/dL (7-18); CALCIUM 7.8 mg/dL (8.5-10.1); CHLORIDE 109 mmol/L (98-107); CO2 25 mmol/L (21-32); CREATININE 0.7 mg/dL (0.55-1.02); GLUCOSE,RANDOM 89 mg/dL (74-106); POTASSIUM 4.3 mmol/L (3.5-5.1); SODIUM 141 mmol/L (136-145)
--- NOTE | 2017-12-10 14:33 | PN ---
Progress Note (short form) - Note Progress Note: afebrile, no c/o , no vaginal odor , no active vagianl bleeding CBC, BMP 12/10/17 11:20 12/10/17 11:20 Last Vital Signs Temp Pulse Resp BP Pulse Ox 99.2 F 69 18 135/84 100 12/10/17 07:10 12/10/17 07:10 12/10/17 07:10 12/10/17 07:10 12/06/17 18:45 abdomen soft, non tender .no cva , uterus non tender lochia minimal no calf tenderness impression improving wbc , asymptomatic plan cont antibiotics monito cbc
[2017-12-11] MEDS: PIPERACILLIN/TAZOB 3.375 GM 3.375 GM in DEXTROSE 5%-WATER - 50 ML IVPB SCH ×3 (01:45→17:05)
[2017-12-11 09:20] LABS: HEMATOCRIT 34.7 % (32.4-45.2); HEMOGLOBIN 11.1 GM/dL (10.7-15.3); MCH 26.5 pg (25.7-33.7); MCHC 32.1 g/dl (32.0-36.0); MEAN CELL VOLUME 82.7 fl (80-96); MEAN PLT VOLUME 7.8 fl (7.5-11.1); PLATELET COUNT 259 K/MM3 (134-434); RDW 13.8 % (11.6-15.6); WHITE BLOOD COUNT 15.5 K/mm3 (4.0-10.0)
[2017-12-11] MEDS: valACYclovir HCL 500 MG TABLET (FP) PO SCH ×2 (09:47→21:38)
--- NOTE | 2017-12-11 13:45 | PN ---
Progress Note, Physician History of Present Illness: patient stable wbc increased trans vaginal u/s done sows retained products - Current Medication List Current Medications: Active Medications Acetaminophen (Tylenol -) 650 mg PO Q3H PRN PRN Reason: PAIN Last Admin: 12/08/17 14:57 Dose: 650 mg Benzocaine (Americaine 20% [place] -) 1 spray TP DAILY PRN PRN Reason: PAIN Benzocaine (Americaine Ointment -) 1 applic TP DAILY PRN PRN Reason: PAIN Bisacodyl (Dulcolax Suppository -) 10 mg RC DAILY PRN PRN Reason: CONSTIPATION Parenteral Electrolytes (Plasma-Lyte 148 -) 1,000 mls @ 125 mls/hr IV [facility] Last Admin: 12/09/17 01:35 Dose: 125 mls/hr Oxytocin/Sodium Chloride (Normal Saline+20 Units Oxytocin -) 20 unit in 1,000 mls @ 125 mls/hr IV [facility] Last Admin: 12/06/17 19:30 Dose: 125 mls/hr Parenteral Electrolytes (Plasma-Lyte 148 -) 1,000 mls @ 125 mls/hr IV [facility] Last Admin: 12/07/17 10:00 Dose: 125 mls/hr Piperacillin Sod/Tazobactam (Sod 3.375 gm/ Dextrose) 50 mls @ 100 mls/hr IVPB Q8H-IV [facility] PRN Reason: Protocol Last Admin: 12/11/17 09:47 Dose: 100 mls/hr Ibuprofen (Motrin -) 600 mg PO Q4H PRN PRN Reason: PAIN Last Admin: 12/08/17 14:57 Dose: 600 mg Methylergonovine Maleate (Methergine Injection -) 0.2 mg IM Q4H PRN PRN Reason: EXCESSIVE BLEEDING (L&D) Senna/Docusate Sodium (Pericolace -) 2 tablet PO HS PRN PRN Reason: CONSTIPATION Valacyclovir HCl (Valtrex -) 500 mg PO BID [facility] Last Admin: 12/11/17 09:47 Dose: 500 mg Witch Marily/Glycerin (Tucks Pads -) 1 pad TP DAILY PRN PRN Reason: PAIN - Objective Vital Signs: Vital Signs Temperature 99.3 F 12/11/17 12:17 Pulse Rate 64 12/11/17 12:17 Respiratory Rate 18 12/11/17 12:17 Blood Pressure 111/65 12/11/17 12:17 O2 Sat by Pulse Oximetry (%) 100 12/06/17 18:45 Constitutional: Yes: No Distress, Calm Cardiovascular: Yes: Regular Rate and Rhythm Respiratory: Yes: Regular, CTA Bilaterally Gastrointestinal: Yes: Normal Bowel Sounds, Soft Musculoskeletal: Yes: WNL Extremities: Yes: WNL Neurological: Yes: Alert, Oriented Psychiatric: Yes: Alert, Oriented Labs: CBC, BMP 12/11/17 08:00 12/10/17 11:20 INR, PTT INR 0.98 (0.82-1.09) 12/06/17 08:27 Assessment/Plan Problem List - Problems (1) demise before 20 weeks with retention of fetus Code(s): O02.1 - MISSED (2) Fever Code(s): R50.9 - FEVER, UNSPECIFIED Qualifiers: Fever type: due to other condition Qualified Code(s): R50.81 - Fever presenting with conditions classified elsewhere leukocytosis herpes wbc trending down plan continue current mgmt patient for or tomorrow abx to continue
--- NOTE | 2017-12-11 16:34 | PN ---
Progress Note (short form) - Note Progress Note: demise delivery at 20 weeks, chorio leukocytosis no c/o CBC, BMP 12/11/17 08:00 12/10/17 11:20 Last Vital Signs Temp Pulse Resp BP Pulse Ox 99.3 F 64 18 111/65 100 12/11/17 12:17 12/11/17 12:17 12/11/17 12:17 12/11/17 12:17 12/06/17 18:45 abdomen soft, ,uterus non tendr lochia minimal TVS reviwed ,consistant with retained product , DR Riley notified of finding by nurse revaluate for suction curettage
[2017-12-12] MEDS: PIPERACILLIN/TAZOB 3.375 GM 3.375 GM in DEXTROSE 5%-WATER - 50 ML IVPB SCH ×3 (01:08→18:05)
--- NOTE | 2017-12-12 08:57 | PN ---
Progress Note (short form) - Note Progress Note: 32 yo , status post delivery of a demise, seen and evaluated. She's afebrile and denies any abdominal cramps nor vaginal bleeding. There's evidence of persistent leukocytosis despite IV antibiotic. Pelvic sonogram shows evidence of retained product of conception. A/P : Status post Demise delivery Leukocytosis Retained product of conception Pre op for suction D&C Problem List - Problems (1) demise before 20 weeks with retention of fetus Code(s): O02.1 - MISSED (2) Fever Code(s): R50.9 - FEVER, UNSPECIFIED Qualifiers: Fever type: due to other condition Qualified Code(s): R50.81 - Fever presenting with conditions classified elsewhere (3) Status post vaginal delivery Code(s): CEQ2151 -
[2017-12-12] MEDS ORDERED: SODIUM CHLORIDE 1,000 ML IV SCH (09:15)
[2017-12-12] MEDS: valACYclovir HCL 500 MG TABLET (FP) PO SCH ×2 (10:15→21:07)
[2017-12-12] MEDS ORDERED: DESFLURANE GAS 240 ML BOTTLE IH ONE ×2 (14:40→14:42)
[2017-12-12] MEDS ORDERED: LIDOCAINE HCL 2% JELLY (5 ML/TUBE) ONE (14:42)
[2017-12-12] MEDS ORDERED: PROPOFOL 20 ML ONE ×2 (14:44→14:52)
[2017-12-12] MEDS ORDERED: MIDAZOLAM HCL 2 MG/2 ML SINGLE DOSE VIAL ONE (14:44)
[2017-12-12] MEDS ORDERED: SUCCINYLCHOLINE CHLORIDE 200 MG/10 ML VIAL ONE (14:46)
--- NOTE | 2017-12-12 14:49 | OP ---
Operative Note - Note: Operative Date: 12/12/17 Pre-Operative Diagnosis: Retained product of conception Operation: Suction D&C Findings: Product of conception Post-Operative Diagnosis: Same as Pre-op Surgeon: Elizabeth Patino Anesthesia: General Specimens Removed: Product of conception Estimated Blood Loss (mls): 20
[2017-12-12] MEDS ORDERED: PROMETHAZINE HCL 25 MG/1 ML VIAL IVPUSH PRN (15:00)
[2017-12-12] MEDS ORDERED: HYDROmorphone HCL CARPU-JECT 2 MG/1 ML DISP.SYRIN IVPUSH PRN (15:00)
[2017-12-12] MEDS ORDERED: ONDANSETRON 4 MG/2 ML VIAL IVPUSH PRN (15:00)
[2017-12-13] MEDS: PIPERACILLIN/TAZOB 3.375 GM 3.375 GM in DEXTROSE 5%-WATER - 50 ML IVPB SCH ×2 (01:59→09:28)
--- NOTE | 2017-12-13 08:24 | PN ---
Post Progress Note - Subjective Subjective: no complains of pain or bleeding Post Day: 7 Type of Delivery: (s/p demise 20 weeks on 12/06/17 . & s/p D&C for retained secundines on 12/13/17) Vital Signs: Vital Signs Temperature 98.3 F 12/12/17 21:00 Pulse Rate 56 L 12/12/17 21:00 Respiratory Rate 20 12/12/17 21:00 Blood Pressure 101/59 12/12/17 21:00 O2 Sat by Pulse Oximetry (%) 100 12/12/17 16:49 Breast Exam: Yes: Soft Uterus: Yes: Fundus Firm (16 weeks size ut ), Non-tender Abdomen/GI: Yes: Abdomen soft, Other (no cva tenderness ). No: Tender Lochia, amount: Small (scanty) Extremities: Yes: Calves non-tender Perineum: Yes: Intact Activity: Ambulating - Labs Labs: CBC WBC 15.5 K/mm3 (4.0-10.0) H 12/11/17 08:00 RBC 4.20 M/mm3 (3.60-5.2) 12/11/17 08:00 Hgb 11.1 GM/dL (10.7-15.3) 12/11/17 08:00 Hct 34.7 % (32.4-45.2) 12/11/17 08:00 MCV 82.7 fl (80-96) 12/11/17 08:00 MCH 26.5 pg (25.7-33.7) 12/11/17 08:00 MCHC 32.1 g/dl (32.0-36.0) 12/11/17 08:00 RDW 13.8 % (11.6-15.6) 12/11/17 08:00 Plt Count 259 K/MM3 (134-434) 12/11/17 08:00 MPV 7.8 fl (7.5-11.1) 12/11/17 08:00 Neutrophils % No Result Required. 12/09/17 07:55 Neutrophils % (Manual) 73.2 % (42.8-82.8) 12/09/17 07:55 Band Neutrophils % 2.0 % 12/09/17 07:55 Lymphocytes % No Result Required. 12/09/17 07:55 Lymphocytes % (Manual) 17.8 % (8-40) D 12/09/17 07:55 Monocytes % 6.4 % (3.8-10.2) 12/06/17 08:27 Monocytes % (Manual) 2 % (3.8-10.2) L 12/09/17 07:55 Eosinophils % 0.3 % (0-4.5) 12/06/17 08:27 Eosinophils % (Manual) 1.0 % (0-4.5) 12/09/17 07:55 Basophils % 0.1 % (0-2.0) 12/06/17 08:27 Basophils % (Manual) 0.0 % (0-2.0) 12/09/17 07:55 Myelocytes % (Man) 1 % (0-2) D 12/09/17 07:55 Nucleated RBC % 1 % (0-0) H 12/09/17 07:55 Metamyelocytes 3 % (0-2) H D 12/09/17 07:55 Hypochromia 1+ 12/08/17 12:50 Toxic Granulation 0 12/07/17 07:45 Dohle Bodies 0 12/07/17 07:45 Platelet Estimate Normal 12/09/17 07:55 Platelet Comment No clotting detected 12/08/17 12:50 Polychromasia 0 12/07/17 07:45 Poikilocytosis 0 12/07/17 07:45 Basophilic Stippling 0 12/07/17 07:45 Anisocytosis 1+ 12/08/17 12:50 Microcytosis 0 12/07/17 07:45 Macrocytosis 0 12/07/17 07:45 Spherocytes 0 12/07/17 07:45 Sickle Cells 0 12/07/17 07:45 Target Cells 0 12/07/17 07:45 Tear Drop Cells 0 12/07/17 07:45 Ovalocytes 0 12/07/17 07:45 Stomatocytes 0 12/07/17 07:45 Helmet Cells 0 12/07/17 07:45 Le[place]anc-Armstrong Bodies 0 12/07/17 07:45 [place] Rings 0 12/07/17 07:45 [place] Cells 0 12/07/17 07:45 Acanthocytes (Spur) 0 12/07/17 07:45 Fragmented RBCs 0 12/07/17 07:45 Schistocytes 0 12/07/17 07:45 Assessment/Plan 32 yrs s/p demise 20 weeks & s/p D &C Ac chorioamnionitis resolving , on IV Zosyn Plan cbc today pending discharge pending medical clearance
[2017-12-13 09:09] LABS: HEMATOCRIT 33.1 % (32.4-45.2); HEMOGLOBIN 10.6 GM/dL (10.7-15.3); MCH 26.6 pg (25.7-33.7); MEAN CELL VOLUME 83.2 fl (80-96); MEAN PLT VOLUME 7.8 fl (7.5-11.1); PLATELET COUNT 276 K/MM3 (134-434); RBC 3.98 M/mm3 (3.60-5.2); RDW 13.5 % (11.6-15.6)
[2017-12-13] MEDS: valACYclovir HCL 500 MG TABLET (FP) PO SCH (09:28)
--- NOTE | 2017-12-13 10:08 | DS ---
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: Vital Signs Temperature 98.3 F 12/12/17 21:00 Pulse Rate 56 L 12/12/17 21:00 Respiratory Rate 20 12/12/17 21:00 Blood Pressure 101/59 12/12/17 21:00 O2 Sat by Pulse Oximetry (%) 100 12/12/17 16:49 Constitutional: Yes: No Distress Eyes: Yes: Conjunctiva Clear HENT: Yes: Atraumatic Neck: Yes: Supple, Trachea Midline Cardiovascular: Yes: Regular Rate and Rhythm Respiratory: Yes: Regular, CTA Bilaterally Gastrointestinal: Yes: Normal Bowel Sounds External Genitalia: Yes: Normal Vaginal Exam: Yes: Normal Cervix: Yes: Normal Uterus: Yes: Firm Neurological: Yes: Alert, Oriented ...Motor Strength: WNL Psychiatric: Yes: Alert, Oriented Labs: CBC, BMP 12/13/17 08:00 12/10/17 11:20 Delivery - Delivery Vaginal Delivery: Spontaneous Type of Anesthesia: None Episiotomy/Laceration: None EBL (cc): 50 Delivery, Single - Stages of Labor Date 1st Stage Initiatied: 12/06/17 Time 1st Stage Initiated: 05:00 Date of Delivery: 12/06/17 Time of Delivery: 17:11 Time Placenta Delivered: 17:50 - Condition of Infant Gender: Female Weight: 9.912 oz Total Hours ROM (Hrs/Mins): 12h 20min - 1 Minute Total Score: 0 5 Minutes Total Score: 0 Discharge Summary Reason For Visit: UTI,SPONTANEOUS ,ABD PAIN,19 WKS PREG Current Active Problems demise before 20 weeks with retention of fetus (Acute) Fever (Acute) Spontaneous miscarriage (Acute) Status post vaginal delivery (Acute) Urinary tract infection (Acute) Procedures: Principal: Vaginal delivery of a demise Other Procedures: Dilation and curetage Hospital Course: Patient is status post delivery of a demise. Infectious disease specialist consulted due to Leukocytosis. Patient received IV antibiotics and subsequently had a suction D&C for retained secundines. Condition: Stable - Instructions Diet, Activity, Other Instructions: Regular diet No douching, no sexual intercourse x 6 weeks. Referrals: Elizabeth Patino MD [Staff Physician] - - Home Medications Comprehensive Discharge Medication List: Ambulatory Orders Vit/Iron Fum/Folic AC [ Tablet] 1 tab PO DAILY 12/06/17
[2017-12-13 11:47] LABS: ACANTHOCYTES 0; ANISOCYTOSIS 0; HELMET CELLS 0; HOWELL-JOLLY BODIES 0; MACROCYTOSIS 0; OVALOCYTE 0; PLATELET ESTIMATE NORMAL; SICKELED CELLS 0; TARGET CELLS 0; TEAR DROP CELLS 0; TOXIC GRANULATION 0
[2017-12-13 12:30] VITALS: BP 109/73; PULSE 65; TEMP 99.4
--- NOTE | 2017-12-13 15:19 | PN ---
Progress Note, Physician History of Present Illness: patient post op from d/c stable no complaints in pacu - Objective Vital Signs: Vital Signs Temperature 99.4 F 12/13/17 10:00 Pulse Rate 65 12/13/17 10:00 Respiratory Rate 20 12/13/17 10:00 Blood Pressure 109/73 12/13/17 10:00 O2 Sat by Pulse Oximetry (%) 100 12/12/17 16:49 Constitutional: Yes: No Distress, Calm Cardiovascular: Yes: Regular Rate and Rhythm Respiratory: Yes: Regular, CTA Bilaterally Gastrointestinal: Yes: Normal Bowel Sounds, Soft Musculoskeletal: Yes: WNL Extremities: Yes: WNL Neurological: Yes: Alert, Oriented Psychiatric: Yes: Alert, Oriented Labs: CBC, BMP 12/13/17 08:00 12/10/17 11:20 INR, PTT INR 0.98 (0.82-1.09) 12/06/17 08:27 Assessment/Plan Problem List - Problems (1) demise before 20 weeks with retention of fetus Code(s): O02.1 - MISSED (2) Fever Code(s): R50.9 - FEVER, UNSPECIFIED Qualifiers: Fever type: due to other condition Qualified Code(s): R50.81 - Fever presenting with conditions classified elsewhere leukocytosis herpes plan check wbc tomorrow continue current mgmt follow closely though rest as per primary team
--- NOTE | 2017-12-19 12:02 | PATH ---
Surgical Pathology Report Patient Name: LIAM GRIFFIN [facility]. Rec. 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 Specimen(s) Received PRODUCTS OF CONCEPTION Clinical History UTI, spontaneous , abdominal pain, 19 weeks Final Diagnosis UTERUS, PRODUCTS OF CONCEPTION, DILATATION AND CURETTAGE: SCANT TROPHOBLASTIC TISSUE, SCANT NECROTIC DECIDUA, AND GESTATIONAL ENDOMETRIUM CONSISTENT WITH PRODUCTS OF CONCEPTION. BENIGN CERVICAL TISSUE. Electronically Signed Yoselyn Tierney M.D. Gross Description Received in formalin labeled "products of conception," is a 13.0 x 8.5 x 1.2 cm aggregate of to brown soft tissue fragments. No definite villous tissue or somatic tissue is identified. Back Feeder Plywood Layup Line sections are submitted in 3 cassettes. /12/13/2017 saudi12/13/2017
== END 2017-12-13 12:40 | disposition home or self-care (01) | DRG 544 ==
LOC: JER 05:12 → JERBED 11:52 → JLDR 13:41 → J3W 12-07 00:27
PROVIDERS: ADMIT Obstetrics & Gynecology; ATTEND Obstetrics & Gynecology
PROC: 10D17ZZ Extraction of Products of Conception, Retained, Via Natural or Artificial Opening (ICD-10-PCS; principal; 2017-12-12 14:00)
DX: O02.1 Missed abortion (principal); O26.872 Cervical shortening, second trimester; O08.83 Urinary tract infection following an ectopic and molar pregnancy; O41.01X0 Oligohydramnios, first trimester, not applicable or unspecified; Z3A.19 19 weeks gestation of pregnancy
CPT/HCPCS: 36415; 59409; 71045-TC; 76815-TC; 76830-TC; 80048; 81003; 81015; 84702; 85025; 85027; 85610; 86850; 86900; 86901; 87040; 88307-TC; 88309-TC; 94760; 99282-25

== ENCOUNTER 2019-08-14 07:50 | Inpatient (IN) | payer OTHER ==
[2019-08-14 08:48] VITALS: BMI 29.0
[2019-08-14] MEDS ORDERED: OXYTOCIN 30 UNITS in 0.9% NS 30 UNIT/500 ML INFUS.BAG IVPB SCH (09:15)
[2019-08-14 09:17] LABS: BASO % 0.3 % (0-2.0); EOS % 0.9 % (0-4.5); HEMATOCRIT 34.2 % (32.4-45.2); HEMOGLOBIN 11.3 GM/dL (10.7-15.3); LYMPH % 35.2 % (8-40); MCH 28.3 pg (25.7-33.7); MCHC 33.1 g/dl (32.0-36.0); MEAN CELL VOLUME 85.5 fl (80-96); MEAN PLT VOLUME 9.8 fl (7.5-11.1); MONO % 7.7 % (3.8-10.2); NEUT % 55.9 % (42.8-82.8); PLATELET COUNT 184 K/MM3 (134-434); RDW 14.1 % (11.6-15.6); WHITE BLOOD COUNT 7.7 K/mm3 (4.0-10.0)
[2019-08-14 09:34] LABS: INR 0.85 (0.83-1.09)
[2019-08-14] MEDS ORDERED: AMPICILLIN - 2 GM in SODIUM CHLORIDE 100 ML IVPB ONE (09:34)
[2019-08-14 09:36] LABS: ACTIVATED PTT 29.4 SECONDS (25.2-36.5)
[2019-08-14] MEDS ORDERED: OXYTOCIN 30 UNITS in 0.9% NS 30 UNIT/500 ML INFUS.BAG IVPB ONE (09:38)
[2019-08-14] MEDS ORDERED: PROMETHAZINE HCL 25 MG/1 ML VIAL IVPUSH ONE (09:46)
[2019-08-14] MEDS ORDERED: BUTORPHANOL TARTRATE 1 MG/ML VIAL IVPB ONE (09:46)
--- NOTE | 2019-08-14 09:46 | HP ---
Past Medical History - Admission Chief Complaint: Here for labor induction. History of Present Illness: 34 y/o female with h/o 19 week delivery due to urosepsis and h/o SAB X 1 here at 39 weeks with SIUP for IOL 2/2 GDM A2. Pt taking Insulin, Levimir 9 units QHS at night, was following with MFM and endocrine throughout . Pt also with h/o urosepsis last and had UTI this , has been on macrobid suppression. Pt admits +FM, no VB/LOF/CTx. Cervix 3cm in office yesterday. History Source: Patient, Medical Record Limitations to Obtaining History: No Limitations - Past Medical History Cardiovascular: No: HTN Pulmonary: No: COPD Gastrointestinal: No: GERD Hepatobiliary: No: Hepatitis B, Hepatitis C Renal/: Yes: UTI Reproductive: No: Fibroids ...: 3 ...Para: 0 ...Spon : 2 ...EDC by I[facility]: 08/19/19 Heme/Onc: No: Anemia Infectious Disease: No: STD's Psych: No: Anxiety, Bipolar Endocrine: Yes: Diabetes Mellitus (on Levimir 9units QHS) - Past Surgical History Past Surgical History: Yes: None Hx Myomectomy: No Hx Transabdominal Cerclage: No - Smoking History Smoking history: Never smoked Have you smoked in the past 12 months: No - Alcohol/Substance Use Hx Alcohol Use: No History of Substance Use: reports: None - Social History Usual Living Arrangement: Yes: With Spouse History of Recent Travel: No Home Medications - Allergies Allergies/Adverse Reactions: Allergies Allergy/AdvReac Type Severity Reaction Status Date / Time No Known Allergies Allergy Verified 08/14/19 09:20 - Home Medications Home Medications: Ambulatory Orders Vit/Iron Fum/Folic AC [ Tablet] 1 tab PO DAILY 12/06/17 Levemir Vial 9 units SQ DAILY 07/05/19 Review of Systems - Review of Systems Constitutional: reports: No Symptoms Eyes: reports: No Symptoms HENT: reports: No Symptoms Neck: reports: No Symptoms Cardiovascular: reports: No Symptoms Respiratory: reports: No Symptoms Gastrointestinal: reports: No Symptoms Genitourinary: reports: No Symptoms Breasts: reports: No Symptoms Reported Musculoskeletal: reports: No Symptoms Integumentary: reports: No Symptoms Neurological: reports: No Symptoms Endocrine: reports: No Symptoms Hematology/Lymphatic: reports: No Symptoms Psychiatric: reports: No Symptoms Physical Exam - Maternity Vital Signs: Vital Signs Temperature 98.1 F 08/14/19 08:30 Pulse Rate 82 08/14/19 08:30 Respiratory Rate 18 08/14/19 08:30 Blood Pressure 123/67 08/14/19 08:30 O2 Sat by Pulse Oximetry (%) Constitutional: Yes: Well Nourished, No Distress, Calm Eyes: Yes: Conjunctiva Clear, EOM Intact HENT: Yes: Atraumatic Neck: Yes: Supple Cardiovascular: Yes: Regular Rate and Rhythm Lungs: Clear to auscultation - Abdominal Exam/OB Fundal Height: 39 Number of Fetuses: Single Presentation: Vertex Contractions: No Category: I Accelerations: Uniform Decelerations: None - Vaginal Exam/OB Dilatation (cm): 3 Effacement (%): 50 Amniotic Membrane Status: Intact Presentation: Vertex/Position Station: -3 - Physical Exam Psychiatric: Yes: Alert, Oriented - Labs Lab Results: CBC, BMP 08/14/19 08:45 Hemorrhage Risk Assessment - Risk Factors Medium Risk Factors: Yes: None High Risk Factors: Yes: None Risk Score: 1 Risk Level: Medium Risk Problem List - Problems (1) Gestational diabetes mellitus (GDM) Code(s): O24.419 - GESTATIONAL DIABETES MELLITUS IN , UNSP CONTROL Assessment/Plan 34 y/o with SIUP at 39 weeks here for IOL for GDMA2. To start pitocin BGs Q2h clear liquids only for now analgesia prn
[2019-08-14 09:49] LABS: BLOOD UREA NITROGEN 7.7 mg/dL (7-18); CALCIUM 9.1 mg/dL (8.5-10.1); CREATININE 0.7 mg/dL (0.55-1.3); POTASSIUM 4.5 mmol/L (3.5-5.1)
[2019-08-14] MEDS ORDERED: AMPICILLIN SODIUM 2 GM VIAL ONE (09:57)
[2019-08-14] MEDS ORDERED: SODIUM CHLORIDE 1,000 ML IV SCH (10:00)
--- NOTE | 2019-08-14 12:27 | PN ---
Ante-Partal Exam - Subjective Subjective: Pt feeling some cramping Vital Signs: Vital Signs Temperature 98.5 F 08/14/19 12:00 Pulse Rate 80 08/14/19 12:00 Respiratory Rate 18 08/14/19 12:00 Blood Pressure 110/77 08/14/19 12:00 O2 Sat by Pulse Oximetry (%) Bleeding: No Headache: No Visual changes: No Right upper quadrant pain: No Pain (scale 1-10): 2 - Contractions Contractions: Yes Regularity: Regular Intensity: Mod/Strong - Exam during Labor Heart Rate: 145 Variability: Moderate Category: I Monitor Accelerations: Present Monitor Decelerations: None Exam: Vaginal Dilatation (cm): 4-5 Effacement (%): 60 Amniotic Membrane Status: Ruptured (AROM for clear fluid at 1210 pm) Amniotic Fluid: Clear Presentation: Vertex Station: -2 - Assessment/Plan Assessment/Plan: AROM for clear fluid continue pitocin induction analgesia prn continue BGs Q2
[2019-08-14] MEDS ORDERED: AMPICILLIN - 1 GM in SODIUM CHLORIDE 100 ML IVPB SCH (13:34)
[2019-08-14] MEDS ORDERED: AMPICILLIN SODIUM 1 GM VIAL ONE (13:47)
[2019-08-14] MEDS: AMPICILLIN - 1 GM in SODIUM CHLORIDE 100 ML IVPB SCH ×2 (13:56→17:35)
[2019-08-14] MEDS ORDERED: PROMETHAZINE HCL 25 MG/1 ML VIAL ONE (15:21)
[2019-08-14] MEDS ORDERED: BUTORPHANOL TARTRATE 1 MG/ML VIAL ONE ×2 (15:21)
[2019-08-14] MEDS ORDERED: OXYTOCIN 20 UNITS in 0.9% NS 20 UNIT/1,000 ML INFUS.BAG IV ONE ×2 (17:13→23:34)
[2019-08-14] MEDS ORDERED: LIDOCAINE HCL 1% PRESERVATIVE FREE - 30ML VIAL ONE (17:14)
--- NOTE | 2019-08-14 18:12 | PN ---
Ante-Partal Exam - Subjective Subjective: Pt feeling pain/pressure with contractions. Vital Signs: Vital Signs Temperature 97.8 F 08/14/19 16:00 Pulse Rate 90 08/14/19 17:00 Respiratory Rate 20 08/14/19 17:00 Blood Pressure 132/88 08/14/19 17:00 O2 Sat by Pulse Oximetry (%) Bleeding: Yes Bleeding Description: Mild (consistent with bloody show) Headache: No Visual changes: No Right upper quadrant pain: No - Contractions Contractions: Yes Regularity: Regular - Exam during Labor Heart Rate: 145 Variability: Moderate Category: I Monitor Decelerations: Early Exam: Vaginal Dilatation (cm): 9 Effacement (%): 100 Presentation: Vertex Station: 0 - Assessment/Plan Assessment/Plan: Continue pitocin anticipate
[2019-08-14] MEDS ORDERED: IBUPROFEN 600 MG TABLET (FP) PO PRN (20:22)
[2019-08-14] MEDS ORDERED: SENNOSIDES/DOCUSATE COMBO (SENNA PLUS) TABLET (UD) PO PRN (20:23)
[2019-08-14] MEDS ORDERED: ACETAMINOPHEN 325 MG TABLET (FP) PO PRN (20:23)
[2019-08-14] MEDS ORDERED: BISACODYL 10 MG SUPP.RECT RC PRN (20:24)
[2019-08-14] MEDS ORDERED: BENZOCAINE 28 GM HEMORRHOIDAL OINTMENT TP PRN (20:24)
[2019-08-14] MEDS ORDERED: WITCH HAZEL 50% (TUCKS) 40 PAD/JAR PAD TP PRN (20:25)
[2019-08-14] MEDS ORDERED: BENZOCAINE 20% 57 GM BOTTLE TP PRN (20:25)
[2019-08-14] MEDS ORDERED: METHYLERGONOVINE MALEATE 0.2 MG/1 ML AMP IM PRN (20:25)
[2019-08-14] MEDS ORDERED: OXYTOCIN 20 UNITS in 0.9% NS 20 UNIT/1,000 ML INFUS.BAG IV SCH (20:30)
[2019-08-14] MEDS ORDERED: INSULIN (LEVEMIR) 100 UNITS/ML UNITS SQ ONE (23:45)
--- NOTE | 2019-08-15 06:58 | PN ---
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 Infant Gender: Male Weight: 7 lb 15 oz Position: Left, OA Total Hours ROM (Hrs/Mins): 7 hours 31 minutes - 1 Minute Total Score: 8 5 Minutes Total Score: 9 - Feeding Plan Initial Plan: Exclusive throughout hospitalization Remarks - Remarks Remarks: Uncomplicated from MITCH position anterior shoulder (right) delivered without issue along with remainder of 8cc of 1% lidocaine injected subdermally 1st degree laceration noted, repaired with 2-0 chromic, right periurethral lac repaired with 2-0 vicryl placenta delivered in tact with 3VC EBL 300 Apgars 8/9 sponge and needle count correct mom stable baby to well baby nursery
[2019-08-15 07:33] LABS: BASO % 0.1 % (0-2.0); EOS % 0.3 % (0-4.5); HEMATOCRIT 36.3 % (32.4-45.2); MCH 28.4 pg (25.7-33.7); MEAN CELL VOLUME 85.9 fl (80-96); MEAN PLT VOLUME 9.8 fl (7.5-11.1); NEUT % 71.6 % (42.8-82.8); PLATELET COUNT 168 K/MM3 (134-434); RBC 4.22 M/mm3 (3.60-5.2); RDW 14.1 % (11.6-15.6); WHITE BLOOD COUNT 14.6 K/mm3 (4.0-10.0)
--- NOTE | 2019-08-15 09:24 | PN ---
Post Progress Note Type of Delivery: Vital Signs: Vital Signs Temperature 98.5 F 08/15/19 06:00 Pulse Rate 69 08/15/19 06:00 Respiratory Rate 18 08/15/19 06:00 Blood Pressure 106/65 08/15/19 06:00 O2 Sat by Pulse Oximetry (%) 100 08/14/19 21:00 Uterus: Yes: Fundus Firm Abdomen/GI: Yes: Abdomen soft Lochia: Yes: Rubra Lochia, amount: Small Extremities: Yes: Calves non-tender. No: Edema Perineum: Yes: Laceration Activity: Ambulating - Labs Labs: CBC WBC 14.6 K/mm3 (4.0-10.0) H 08/15/19 07:00 RBC 4.22 M/mm3 (3.60-5.2) 08/15/19 07:00 Hgb 12.0 GM/dL (10.7-15.3) 08/15/19 07:00 Hct 36.3 % (32.4-45.2) 08/15/19 07:00 MCV 85.9 fl (80-96) 08/15/19 07:00 MCH 28.4 pg (25.7-33.7) 08/15/19 07:00 MCHC 33.0 g/dl (32.0-36.0) 08/15/19 07:00 RDW 14.1 % (11.6-15.6) 08/15/19 07:00 Plt Count 168 K/MM3 (134-434) 08/15/19 07:00 MPV 9.8 fl (7.5-11.1) 08/15/19 07:00 Absolute Neuts (auto) 10.5 K/mm3 (1.5-8.0) H 08/15/19 07:00 Neutrophils % 71.6 % (42.8-82.8) D 08/15/19 07:00 Lymphocytes % 20.0 % (8-40) D 08/15/19 07:00 Monocytes % 8.0 % (3.8-10.2) 08/15/19 07:00 Eosinophils % 0.3 % (0-4.5) 08/15/19 07:00 Basophils % 0.1 % (0-2.0) 08/15/19 07:00 Nucleated RBC % 0 % (0-0) 08/15/19 07:00 Problem List - Problems (1) Gestational diabetes mellitus (GDM) Code(s): O24.419 - GESTATIONAL DIABETES MELLITUS IN , UNSP CONTROL (2) Vaginal delivery Code(s): O80 - ENCOUNTER FOR FULL-TERM UNCOMPLICATED DELIVERY Assessment/Plan 34 y/o s/p normal doing well regular diet routine care
--- NOTE | 2019-08-15 09:29 | PN ---
Post Progress Note - Subjective Subjective: Pt seen/examined. Doing well. Pain controlled, tolerating diet, voiding, passing flatus. VB minimal. No complaints. Type of Delivery: Vital Signs: Vital Signs Temperature 98.5 F 08/15/19 06:00 Pulse Rate 69 08/15/19 06:00 Respiratory Rate 18 08/15/19 06:00 Blood Pressure 106/65 08/15/19 06:00 O2 Sat by Pulse Oximetry (%) 100 08/14/19 21:00 Uterus: Yes: Fundus Firm Abdomen/GI: Yes: Abdomen soft Lochia: Yes: Rubra Extremities: Yes: Calves non-tender Perineum: Yes: Laceration (1st degree) Activity: Ambulating - Labs Labs: CBC WBC 14.6 K/mm3 (4.0-10.0) H 08/15/19 07:00 RBC 4.22 M/mm3 (3.60-5.2) 08/15/19 07:00 Hgb 12.0 GM/dL (10.7-15.3) 08/15/19 07:00 Hct 36.3 % (32.4-45.2) 08/15/19 07:00 MCV 85.9 fl (80-96) 08/15/19 07:00 MCH 28.4 pg (25.7-33.7) 08/15/19 07:00 MCHC 33.0 g/dl (32.0-36.0) 08/15/19 07:00 RDW 14.1 % (11.6-15.6) 08/15/19 07:00 Plt Count 168 K/MM3 (134-434) 08/15/19 07:00 MPV 9.8 fl (7.5-11.1) 08/15/19 07:00 Absolute Neuts (auto) 10.5 K/mm3 (1.5-8.0) H 08/15/19 07:00 Neutrophils % 71.6 % (42.8-82.8) D 08/15/19 07:00 Lymphocytes % 20.0 % (8-40) D 08/15/19 07:00 Monocytes % 8.0 % (3.8-10.2) 08/15/19 07:00 Eosinophils % 0.3 % (0-4.5) 08/15/19 07:00 Basophils % 0.1 % (0-2.0) 08/15/19 07:00 Nucleated RBC % 0 % (0-0) 08/15/19 07:00 Problem List - Problems (1) Gestational diabetes mellitus (GDM) Code(s): O24.419 - GESTATIONAL DIABETES MELLITUS IN , UNSP CONTROL (2) Vaginal delivery Code(s): O80 - ENCOUNTER FOR FULL-TERM UNCOMPLICATED DELIVERY Assessment/Plan 34 y/o PPD#1 s/p normal , A2GDM regular diabetic diet, will have endocrine come evaluate patient, continue BGs Q4h OOB PO pain meds routine care
[2019-08-15] MEDS: PRENATAL VITAMINS W/ FOLIC ACID TABLET (FP) PO SCH (12:19)
--- NOTE | 2019-08-15 13:04 | CONSULT ---
Consult Consult Specialty:: Endocrinology Referred by:: Dr Mattson Reason for Consultation:: Hyperglycemia - History of Present Illness Chief Complaint: Hyperglycemia History of Present Illness: This is a 34 y/o female with GDM taking Insulin, Levimir 9 units QHS at night h/o urosepsis last and had UTI this , who has been on macrobid suppression had normal vaginal delivery. Pt referred for management of GDM. Pt denies any complaints. FS has been stable. - History Source History Provided By: Patient, Medical Record Limitations to Obtaining History: No Limitations - Past Medical History Cardio/Vascular: No: HTN Pulmonary: No: COPD Gastrointestinal: No: GERD Hepatobiliary: No: Hepatitis B, Hepatitis C Renal/: Yes: UTI Infectious Disease: No: STD's Psych: No: Anxiety, Bipolar Endocrine: Yes: Diabetes Mellitus (on Levimir 9units QHS) - Past Surgical History Past Surgical History: Yes: None - Alcohol/Substance Use Hx Alcohol Use: No History of Substance Use: reports: None - Smoking History Smoking history: Never smoked Have you smoked in the past 12 months: No - Social History History of Recent Travel: No Home Medications - Allergies Allergies/Adverse Reactions: Allergies Allergy/AdvReac Type Severity Reaction Status Date / Time No Known Allergies Allergy Verified 08/14/19 09:20 - Home Medications Home Medications: Ambulatory Orders Vit/Iron Fum/Folic AC [ Tablet] 1 tab PO DAILY 12/06/17 Levemir Vial 9 units SQ DAILY 07/05/19 Review of Systems - Review of Systems Constitutional: reports: No Symptoms Eyes: reports: No Symptoms HENT: reports: No Symptoms Neck: reports: No Symptoms Cardiovascular: reports: No Symptoms Respiratory: reports: No Symptoms Gastrointestinal: reports: No Symptoms Genitourinary: reports: No Symptoms Breasts: reports: No Symptoms Reported Musculoskeletal: reports: No Symptoms Integumentary: reports: No Symptoms Neurological: reports: No Symptoms Physical Exam Vital Signs: Vital Signs Temperature 98.1 F 08/15/19 10:00 Pulse Rate 81 08/15/19 10:00 Respiratory Rate 18 08/15/19 10:00 Blood Pressure 125/73 08/15/19 10:00 O2 Sat by Pulse Oximetry (%) 100 08/14/19 21:00 Constitutional: Yes: Well Nourished Eyes: Yes: WNL, Conjunctiva Clear, EOM Intact HENT: Yes: Atraumatic, Normocephalic Cardiovascular: Yes: Regular Rate and Rhythm Respiratory: Yes: Regular, CTA Bilaterally Gastrointestinal: Yes: Normal Bowel Sounds Musculoskeletal: Yes: WNL Extremities: Yes: WNL Edema: No Neurological: Yes: Alert, Oriented Labs: CBC, BMP 08/15/19 07:00 08/14/19 08:45 Assessment/Plan A/P GDM S/P Normal delivery BGM QACHS Novolog SS coverage Will F/u
[2019-08-15] MEDS ORDERED: ACETAMINOPHEN 325 MG TABLET (FP) ONE (16:01)
[2019-08-15] MEDS ORDERED: DIPHTH,PERTUSS(ACELL),TET 0.5 ML DISP.SYRIN IM ONE (18:02)
[2019-08-15] MEDS: Insulin (LOG) Aspart 100 UNITS/ML VIAL SQ SCH (19:07)
[2019-08-15] MEDS ORDERED: Insulin (LOG) Aspart 100 UNITS/ML VIAL SQ SCH (22:00)
[2019-08-16] MEDS: Insulin (LOG) Aspart 100 UNITS/ML VIAL SQ SCH ×2 (08:27→11:34)
--- NOTE | 2019-08-16 09:49 | PN ---
Progress Note (short form) - Note Progress Note: Denies any complaints Blood sugar 58 during the night Vital Signs Period Temp Pulse Resp BP Sys/Perez Pulse Ox Last 24 Hr 98.0 F-98.1 F 72-81 18-20 123-130/72-81 PE: AOx3 Neck: supple, No JVD HEENT: EOMI Lungs: CTA CVS: S1S2 Abd: Benign Ext: No edema Neuro: No focal deficit CMP Sodium 139 mmol/L (136-145) 08/14/19 08:45 Potassium 4.5 mmol/L (3.5-5.1) 08/14/19 08:45 Chloride 106 mmol/L (98-107) 08/14/19 08:45 Carbon Dioxide 26 mmol/L (21-32) 08/14/19 08:45 Anion Gap 7 MMOL/L (8-16) L 08/14/19 08:45 BUN 7.7 mg/dL (7-18) 08/14/19 08:45 Creatinine 0.7 mg/dL (0.55-1.3) 08/14/19 08:45 Est GFR (CKD-EPI)AfAm 131.94 08/14/19 08:45 Est GFR (CKD-EPI)NonAf 113.84 08/14/19 08:45 POC Glucometer 78 UNITS (80-120) 08/16/19 06:18 Random Glucose 92 mg/dL (74-106) 08/14/19 08:45 Calcium 9.1 mg/dL (8.5-10.1) 08/14/19 08:45 Current Medications Generic Name Dose Route Start Last Admin Trade Name Freq PRN Reason Stop Dose Admin Acetaminophen 650 mg 08/14/19 20:23 08/15/19 16:05 Tylenol - PO 650 mg Q3H PRN Administration PAIN OR FEVER Benzocaine 1 applic 08/14/19 20:24 Americaine Ointment - TP PRN PRN HEMORRHOIDS/RECTAL PAIN Benzocaine 1 spray 08/14/19 20:25 Americaine 20% [place] - TP PRN PRN HEMORRHOIDS / RECTAL PAIN Bisacodyl 10 mg 08/14/19 20:24 Dulcolax Suppository - RC PRN PRN CONSTIPATION Ibuprofen 600 mg 08/14/19 20:22 Motrin - PO Q4H PRN PAIN LEVEL 1-5 Insulin Aspart 0 units 08/15/19 16:30 08/16/19 08:27 Novolog SQ Not Given TIDAC [facility] Protocol Insulin Aspart 0 units 08/15/19 22:00 08/15/19 22:55 Novolog SQ Not Given HS [facility] Protocol Methylergonovine Maleate 0.2 mg 08/14/19 20:25 Methergine Injection - IM Q4H PRN EXCESSIVE BLEEDING (L&D) Multivit/Folic Acid/Iron 1 tab 08/15/19 10:00 08/15/19 12:19 Vitamins (Sj[facility]) - PO 1 tab DAILY [facility] Administration Senna/Docusate Sodium 2 tablet 08/14/19 20:23 Pericolace - PO HS PRN CONSTIPATION Witch Marily/Glycerin 1 pad 08/14/19 20:25 Tucks Pads - TP PRN PRN CLEANING A/P GDM S/P Normal delivery Monitor BGM QACHS Got Levemir 6 units on 08.14.19 Novolog SS coverage Diet exercise discussed Probably won't need antidiabetic meds at this point. Will F/u
[2019-08-16 09:54] VITALS: BP 126/76; PULSE 92; TEMP 98.3
[2019-08-16] MEDS: PRENATAL VITAMINS W/ FOLIC ACID TABLET (FP) PO SCH (10:06)
--- NOTE | 2019-08-16 12:22 | DS ---
Physical Exam-[employer] Vital Signs: Vital Signs Temperature 98.3 F 08/16/19 09:52 Pulse Rate 92 H 08/16/19 09:52 Respiratory Rate 20 08/16/19 09:52 Blood Pressure 126/76 08/16/19 09:52 O2 Sat by Pulse Oximetry (%) 100 08/14/19 21:00 Labs: CBC, BMP 08/15/19 07:00 08/14/19 08:45 Delivery - Delivery Vaginal Delivery: No Problems Type of Anesthesia: Local Episiotomy/Laceration: Periurethral Extnsion/lac, 1st degree EBL (cc): 300 Delivery, Single - Stages of Labor Date 1st Stage Initiatied: 08/14/19 Time 1st Stage Initiated: 15:30 Date 2nd Stage Initiated: 08/14/19 Time 2nd Stage Initiated: 19:20 Date of Delivery: 08/14/19 Time of Delivery: 19:37 Time Placenta Delivered: 19:41 Placenta: Yes: Spontaneous - Condition of Infant Report Developer/Site Acquisition Manager Present: No Infant Gender: Male Weight: 7 lb 15 oz Position: Left, OA Total Hours ROM (Hrs/Mins): 7 hours 31 minutes - 1 Minute Total Score: 8 5 Minutes Total Score: 9 - Feeding Plan Initial Plan: Exclusive throughout hospitalization Remarks - Remarks Remarks: Pt admitted on 08/14/19 for IOL 2/2 GDM. Pt had uncomplicated on that same date. Pt followed with endocrine during hospital stay, BGs stable without insulin since 08/14 evening. Underwent normal post recovery otherwise and was discharged home on 08/16/19. Discharge Summary Reason For Visit: INDUCTION OF LABOR Current Active Problems Gestational diabetes mellitus (GDM) (Acute) Vaginal delivery (Acute) Condition: Good - Instructions Diet, Activity, Other Instructions: Physical activity Resume your normal everyday activity as tolerated no heavy lifting or exercise until seen by your surgeon. You may walk unlimited dillon of and climb stairs. You may resume driving the car when you feel safe and comfortable behind the wheel. No sexual activity as instructed. Wound care If you have a bandage, leave it on, and keep dry for 48-72 hours. After that time discard the outer bandage. If they are tapes on the skin under the out of bandage leave them in place. They will peel off in the next 7 to 10 days. Do Not Peel them off. You may shower the day after surgery. If there are tapes present on the skin, you may shower over them. Diet There are no dietary restrictions. Eat healthy, high-fiber foods. Drink 6 to 8 glasses of liquid each day. This will assist in keeping your bowels are regular. Pain management You may take Tylenol or acetaminophen or Ibuprofen (for example, Motrin, Advil etc.) from my pain prescription medication is ordered should be taken as prescribed for moderate to severe pain. Call MD for any of the following: Severe pain not relieved by medication Fever of 101 or higher Excessive bleeding or drainage on dressing Inability to urinate Disposition: HOME - Home Medications Comprehensive Discharge Medication List: Ambulatory Orders Vit/Iron Fum/Folic AC [ Tablet] 1 tab PO DAILY 12/06/17 Levemir Vial 9 units SQ DAILY 07/05/19 Ibuprofen [Motrin -] 600 mg PO QID PRN #28 tablet 08/16/19
== END 2019-08-16 15:30 | disposition home or self-care (01) | DRG 807 ==
LOC: JLDR 07:50 → J3N 08-15 20:02
PROVIDERS: ADMIT Obstetrics & Gynecology; ATTEND Obstetrics & Gynecology
PROC: 10E0XZZ Delivery of Products of Conception, External Approach (ICD-10-PCS; principal; 2019-08-14)
PROC: 0HQ9XZZ Repair Perineum Skin, External Approach (ICD-10-PCS; 2019-08-14)
DX: O24.424 Gestational diabetes mellitus in childbirth, insulin controlled (principal); Z37.0 Single live birth; O71.82 Other specified trauma to perineum and vulva; O70.0 First degree perineal laceration during delivery; Z3A.39 39 weeks gestation of pregnancy
CPT/HCPCS: 36415; 59409; 80048; 82962; 85025; 85610; 85730; 86593; 86850; 86900; 86901; 90715; J7030

== ENCOUNTER 2021-01-23 05:41 | Day surgery (SDC) | payer OTHER ==
[2021-01-23 05:47] VITALS: BMI 26.6
[2021-01-23] MEDS ORDERED: ACETAMINOPHEN 500 MG TABLET (FP) PO ONE (05:59)
[2021-01-23] MEDS ORDERED: ACETAMINOPHEN 325 MG TABLET (FP) ONE (06:05)
[2021-01-23 06:24] LABS: BASO % 0.4 % (0-2.0); EOS % 0.5 % (0-4.5); HEMATOCRIT 33.6 % (32.4-45.2); HEMOGLOBIN 11.4 GM/dL (10.7-15.3); LYMPH % 34.1 % (8-40); MCHC 33.8 g/dl (32.0-36.0); MEAN PLT VOLUME 7.6 fl (7.5-11.1); MONO % 6.8 % (3.8-10.2); NEUT % 58.2 % (42.8-82.8); PLATELET COUNT 268 K/MM3 (134-434); RBC 4.05 M/mm3 (3.60-5.2); RDW 12.9 % (11.6-15.6); WHITE BLOOD COUNT 9.8 K/mm3 (4.0-10.0)
[2021-01-23 06:50] LABS: POTASSIUM 4.2 mmol/L (3.5-5.1)
[2021-01-23 06:52] LABS: ALBUMIN 3.7 g/dl (3.4-5.0); CALCIUM 8.5 mg/dL (8.5-10.1)
[2021-01-23 06:53] LABS: BLOOD UREA NITROGEN 5.9 mg/dL (7-18)
[2021-01-23 06:56] LABS: CREATININE 0.7 mg/dL (0.55-1.3)
[2021-01-23 06:57] LABS: BILIRUBIN,TOTAL 0.2 mg/dL (0.2-1); TOT PROT 6.9 g/dl (6.4-8.2)
[2021-01-23 08:44] LABS: EPI CELLS 15 /uL (0-25.1); HYALINE CASTS 2 /uL (0-3.1); URINE APPEARANCE CLOUDY; URINE BACTERIA >9,000 /uL (0-1359); URINE BILIRUBIN NEGATIVE (NEGATIVE); URINE COLOR YELLOW; URINE GLUCOSE (UA) NEGATIVE (NEGATIVE); URINE KETONE NEGATIVE (NEGATIVE); URINE LEUK ESTERASE NEGATIVE (NEGATIVE); URINE NITRITE POSITIVE (NEGATIVE); URINE PROTEIN NEGATIVE (NEGATIVE); URINE RBC 3 /uL (0-23.9); URINE UROBILINOGEN 0.2 mg/dL (0.2-1.0); URINE WBC 8 /uL (0-25.8)
[2021-01-23] MEDS ORDERED: CEFTRIAXONE 1 GM in DEXTROSE 5%-WATER - 100 ML IVPB ONE (09:18)
[2021-01-23] MEDS ORDERED: morphine CARPU-JECT 4 MG/1 ML DISP.SYRIN IVPUSH ONE (09:25)
[2021-01-23] MEDS ORDERED: SODIUM CHLORIDE 0.9% 500 ML INFUS.BAG IV ONE (09:25)
[2021-01-23] MEDS ORDERED: SUCCINYLCHOLINE CHLORIDE 200 MG/10 ML SYRINGE ONE (10:34)
[2021-01-23] MEDS ORDERED: MIDAZOLAM HCL 2 MG/2 ML SINGLE DOSE VIAL ONE ×2 (10:34→13:35)
[2021-01-23] MEDS ORDERED: ROCURONIUM BROMIDE 50 MG/5 ML SYRINGE ONE (10:34)
[2021-01-23] MEDS ORDERED: PROPOFOL 20 ML ONE ×2 (10:34→10:39)
[2021-01-23] MEDS ORDERED: CEFTRIAXONE 1 GM/50 ML BAG ONE (10:39)
[2021-01-23] MEDS ORDERED: morphine SULFATE 4 MG/ML VIAL ONE (10:39)
[2021-01-23] MEDS ORDERED: ONDANSETRON 4 MG/2 ML VIAL IVPUSH PRN (11:24)
[2021-01-23] MEDS ORDERED: LACTATED RINGERS SOLUTION 1,000 ML IV SCH ×2 (11:30→11:45)
[2021-01-23] MEDS ORDERED: IBUPROFEN 600 MG TABLET (FP) PO PRN (11:37)
[2021-01-23] MEDS ORDERED: IBUPROFEN 800 MG/8 ML IJ IVPB PRN (11:37)
[2021-01-23] MEDS ORDERED: DEXAMETHASONE SOD PHOSPHATE 4 MG/1 ML VIAL ONE (12:16)
[2021-01-23] MEDS ORDERED: BUPIVACAINE HCL/PF 0.5% (5 MG/ML) 30 ML VIAL IJ ONE ×2 (12:31)
[2021-01-23] MEDS ORDERED: NEOSTIGMINE METHYLSULFATE 0.5 MG/ML - 10 ML MDV ONE (12:50)
[2021-01-23] MEDS ORDERED: GLYCOPYRROLATE 0.2 MG/1 ML VIAL ONE (12:50)
[2021-01-23] MEDS ORDERED: KETOROLAC TROMETHAMINE 30 MG/1 ML VIAL ONE (12:57)
[2021-01-23] MEDS ORDERED: MIDAZOLAM HCL 2 MG/2 ML SINGLE DOSE VIAL IVPUSH ONE (14:31)
[2021-01-23 21:59] LABS: BASO % 0.3 % (0-2.0); EOS % 0.5 % (0-4.5); HEMATOCRIT 31.8 % (32.4-45.2); HEMOGLOBIN 10.4 GM/dL (10.7-15.3); MCH 27.4 pg (25.7-33.7); MCHC 32.7 g/dl (32.0-36.0); MEAN CELL VOLUME 83.9 fl (80-96); MONO % 4.5 % (3.8-10.2); NEUT % 79.7 % (42.8-82.8); PLATELET COUNT 269 K/MM3 (134-434); RBC 3.79 M/mm3 (3.60-5.2); RDW 13.3 % (11.6-15.6); WHITE BLOOD COUNT 12.8 K/mm3 (4.0-10.0)
[2021-01-24 06:12] VITALS: TEMP 98.8
[2021-01-24 07:23] LABS: BASO % 0.4 % (0-2.0); EOS % 0.1 % (0-4.5); HEMATOCRIT 28.5 % (32.4-45.2); HEMOGLOBIN 9.6 GM/dL (10.7-15.3); LYMPH % 25.7 % (8-40); MCH 27.9 pg (25.7-33.7); MCHC 33.7 g/dl (32.0-36.0); MEAN CELL VOLUME 82.9 fl (80-96); MEAN PLT VOLUME 8.1 fl (7.5-11.1); MONO % 5.9 % (3.8-10.2); NEUT % 67.9 % (42.8-82.8); PLATELET COUNT 247 K/MM3 (134-434); RBC 3.44 M/mm3 (3.60-5.2); RDW 12.7 % (11.6-15.6); WHITE BLOOD COUNT 15.4 K/mm3 (4.0-10.0)
[2021-01-24 09:29] VITALS: BP 101/64; PULSE 77
== END 2021-01-24 10:40 | disposition home or self-care (01) ==
LOC: JER 05:41 → JASUSAT 10:26 → J3W 15:11 → JASUSAT 01-24 10:40
PROVIDERS: ATTEND Obstetrics & Gynecology
PROC: 0UB54ZZ Excision of Right Fallopian Tube, Percutaneous Endoscopic Approach (ICD-10-PCS; 2021-01-23)
PROC: 10T24ZZ Resection of Products of Conception, Ectopic, Percutaneous Endoscopic Approach (ICD-10-PCS; principal; 2021-01-23 12:00)
DX: O00.101 Right tubal pregnancy without intrauterine pregnancy (principal)
CPT/HCPCS: 36415; 76817-TC; 80053; 81003; 84702; 85025; 86850; 86900; 86901; 87086; 87186; 88305-TC; 93005; 93010; 94760; 99285-25; C9803; U0003

== ENCOUNTER 2021-11-29 08:14 | Inpatient (IN) | payer OTHER ==
[2021-11-29] MEDS ORDERED: DINOPROSTONE 10 MG VAGINAL SUPPOSITORY VG ONE (09:04)
[2021-11-29] MEDS ORDERED: ELECTROLYTE-148 SOLN 1,000 ML IV SCH (09:15)
[2021-11-29 09:41] VITALS: BMI 29.3
[2021-11-29] MEDS ORDERED: AMPICILLIN - 2 GM in SODIUM CHLORIDE 100 ML IVPB ONE (11:18)
[2021-11-29] MEDS ORDERED: AMPICILLIN SODIUM 2 GM VIAL ONE (11:24)
[2021-11-29 13:18] LABS: HIV INTERPRETATION NEGATIVE (NEGATIVE)
[2021-11-29] MEDS ORDERED: AMPICILLIN SODIUM 1 GM VIAL ONE ×3 (15:27→23:12)
[2021-11-29] MEDS: AMPICILLIN - 1 GM in SODIUM CHLORIDE 100 ML IVPB SCH ×3 (15:30→23:15)
[2021-11-29] MEDS ORDERED: DEXTROSE 5%-LACTATED RINGERS 1,000 ML IV SCH (18:15)
[2021-11-29] MEDS ORDERED: BUTORPHANOL TARTRATE 1 MG/ML VIAL IVPB PRN ×2 (18:19)
[2021-11-29] MEDS ORDERED: PROMETHAZINE HCL 25 MG/1 ML VIAL IVPUSH ONE (18:19)
[2021-11-29] MEDS ORDERED: OXYTOCIN 20 UNITS in 0.9% NS 20 UNIT/1,000 ML INFUS.BAG IV ONE (23:51)
[2021-11-29] MEDS ORDERED: LIDOCAINE HCL 1% PRESERVATIVE FREE - 30ML VIAL ONE (23:51)
[2021-11-30] MEDS ORDERED: oxyCODONE HCL 5 MG TABLET PO PRN (01:02)
[2021-11-30] MEDS ORDERED: BENZOCAINE 20% 57 GM BOTTLE TP PRN (01:02)
[2021-11-30] MEDS ORDERED: BISACODYL 10 MG SUPP.RECT RC PRN (01:02)
[2021-11-30] MEDS ORDERED: ACETAMINOPHEN 325 MG TABLET (FP) PO PRN (01:02)
[2021-11-30] MEDS ORDERED: METHYLERGONOVINE MALEATE 0.2 MG/1 ML AMP IM PRN (01:02)
[2021-11-30] MEDS ORDERED: BENZOCAINE 28 GM HEMORRHOIDAL OINTMENT TP PRN (01:02)
[2021-11-30] MEDS ORDERED: WITCH HAZEL 50% (TUCKS) 40 PAD/JAR PAD TP PRN (01:02)
[2021-11-30] MEDS ORDERED: OXYTOCIN 20 UNITS in 0.9% NS 20 UNIT/1,000 ML INFUS.BAG IV SCH (01:15)
[2021-11-30 02:13] LABS: CORD BASE EXCESS -3.2 mmol/L (0-2); CORD HCO3 24.7 mmHg (20-29); CORD PCO2 55.7 mmHg (30-78); CORD pH 7.265 (7.14-7.44)
[2021-11-30 02:16] LABS: CORD BASE EXCESS -6.9 mmol/L (0-2); CORD HCO3 23.4 mmHg (20-29); CORD PCO2 69.4 mmHg (30-78); CORD pH 7.145 (7.14-7.44)
[2021-11-30] MEDS: AMPICILLIN - 1 GM in SODIUM CHLORIDE 100 ML IVPB SCH (03:53)
[2021-11-30] MEDS: IBUPROFEN 600 MG TABLET (FP) PO PRN ×3 (04:39→18:50)
[2021-11-30] MEDS ORDERED: FLU VACC QS2021-22(6MOS UP)/PF 60 MCG/0.5 ML SYRINGE IM ONE (10:00)
[2021-11-30] MEDS: FERROUS SO4 325 MG TABLET (FP) PO SCH ×3 (10:55→18:45)
[2021-11-30] MEDS: PRENATAL VITAMINS W/ FOLIC ACID TABLET (FP) PO SCH (10:55)
[2021-12-01 08:58] LABS: HEMOGLOBIN 10.4 GM/dL (10.7-15.3); MCH 28.7 pg (25.7-33.7); MCHC 33.5 g/dl (32.0-36.0); MEAN CELL VOLUME 85.5 fl (80-96); MEAN PLT VOLUME 9.3 fl (7.5-11.1); PLATELET COUNT 168 10^3/uL (134-434); RBC 3.62 M/mm3 (3.60-5.2); RDW 14.1 % (11.6-15.6); WHITE BLOOD COUNT 10.5 K/mm3 (4.0-10.0)
[2021-12-01] MEDS: FERROUS SO4 325 MG TABLET (FP) PO SCH ×3 (09:00→17:46)
[2021-12-01] MEDS: PRENATAL VITAMINS W/ FOLIC ACID TABLET (FP) PO SCH (10:00)
[2021-12-01] MEDS: IBUPROFEN 600 MG TABLET (FP) PO PRN ×2 (10:00→17:46)
[2021-12-01 10:33] LABS: ANISOCYTOSIS 2+; MACROCYTOSIS 0; PLATELET ESTIMATE NORMAL
[2021-12-01] MEDS: guaiFENesin 200 MG/10 ML 10 ML UNIT-DOSE CUPS PO PRN ×2 (17:47→22:58)
[2021-12-01] MEDS ORDERED: SENNOSIDES/DOCUSATE COMBO (SENNA PLUS) TABLET (UD) PO PRN (22:00)
[2021-12-02] MEDS: FERROUS SO4 325 MG TABLET (FP) PO SCH (09:00)
[2021-12-02] MEDS: IBUPROFEN 600 MG TABLET (FP) PO PRN (09:25)
[2021-12-02] MEDS: PRENATAL VITAMINS W/ FOLIC ACID TABLET (FP) PO SCH (09:25)
[2021-12-02 11:10] VITALS: BP 123/71; PULSE 92; TEMP 98.2
== END 2021-12-02 10:15 | disposition home or self-care (01) | DRG 807 ==
LOC: JLDR 08:14 → J3W 11-30 03:23
PROVIDERS: ADMIT Obstetrics & Gynecology; ATTEND Obstetrics & Gynecology
PROC: 10E0XZZ Delivery of Products of Conception, External Approach (ICD-10-PCS; principal; 2021-11-29)
PROC: 3E0P7VZ Introduction of Hormone into Female Reproductive, Via Natural or Artificial Opening (ICD-10-PCS; 2021-11-29)
PROC: 0W8NXZZ Division of Female Perineum, External Approach (ICD-10-PCS; 2021-11-29)
DX: O36.63X0 Maternal care for excessive fetal growth, third trimester, not applicable or unspecified (principal); Z37.0 Single live birth; O24.424 Gestational diabetes mellitus in childbirth, insulin controlled; O66.0 Obstructed labor due to shoulder dystocia; Z3A.38 38 weeks gestation of pregnancy
CPT/HCPCS: 36415; 36600; 59409; 82803; 82962; 85025; 87389; 90686; C9803; G0008; U0003; U0005

== ENCOUNTER 2022-11-10 06:15 | Inpatient (IN) | payer OTHER ==
[2022-11-10] MEDS ORDERED: LACTATED RINGERS SOLUTION 1,000 ML IV SCH (06:30)
[2022-11-10] MEDS ORDERED: LACTATED RINGERS SOLUTION 1,000 ML IV ONE ×2 (06:30→14:28)
[2022-11-10] MEDS ORDERED: AMPICILLIN - 2 GM in SODIUM CHLORIDE 100 ML IVPB ONE (06:30)
[2022-11-10] MEDS ORDERED: MAGNESIUM 4GM/H20 - 4 GM/100 ML IVPB IVPB ONE ×2 (07:08→07:10)
[2022-11-10 07:18] LABS: BASO % 0.3 % (0-2.0); EOS % 0.3 % (0-4.5); HEMATOCRIT 36.3 % (32.4-45.2); HEMOGLOBIN 11.7 GM/dL (10.7-15.3); LYMPH % 16.5 % (8-40); MCH 27.2 pg (25.7-33.7); MCHC 32.1 g/dl (32.0-36.0); MEAN CELL VOLUME 84.8 fl (80-96); MEAN PLT VOLUME 8.6 fl (7.5-11.1); MONO % 7.3 % (3.8-10.2); NEUT % 75.6 % (42.8-82.8); PLATELET COUNT 264 10^3/uL (134-434); RBC 4.28 M/mm3 (3.60-5.2); RDW 12.9 % (11.6-15.6); WHITE BLOOD COUNT 15.2 K/mm3 (4.0-10.0)
[2022-11-10 07:33] LABS: BLOOD UREA NITROGEN 4.7 mg/dL (7-18); CALCIUM 8.7 mg/dL (8.5-10.1)
[2022-11-10 07:35] LABS: INR 1.01 (0.83-1.09); PROTHROMBIN TIME (PATIENT) 11.6 SEC (9.7-13.0)
[2022-11-10 07:37] LABS: CREATININE 0.5 mg/dL (0.55-1.3)
[2022-11-10 07:38] LABS: ACTIVATED PTT 27.8 SECONDS (25.2-36.5)
[2022-11-10] MEDS ORDERED: BENZOCAINE 28 GM HEMORRHOIDAL OINTMENT TP PRN (07:40)
[2022-11-10] MEDS ORDERED: ACETAMINOPHEN 325 MG TABLET (FP) PO PRN (07:40)
[2022-11-10] MEDS ORDERED: WITCH HAZEL 50% (TUCKS) 40 PAD/JAR PAD TP PRN (07:40)
[2022-11-10] MEDS ORDERED: oxyCODONE HCL 5 MG TABLET PO PRN (07:40)
[2022-11-10] MEDS ORDERED: BENZOCAINE 20% 57 GM BOTTLE TP PRN (07:40)
[2022-11-10] MEDS ORDERED: METHYLERGONOVINE MALEATE 0.2 MG/1 ML AMP IM PRN (07:40)
[2022-11-10] MEDS ORDERED: BISACODYL 10 MG SUPP.RECT RC PRN (07:40)
[2022-11-10] MEDS ORDERED: OXYTOCIN 20 UNITS in 0.9% NS 20 UNIT/1,000 ML INFUS.BAG IV SCH (07:45)
[2022-11-10] MEDS ORDERED: ELECTROLYTE-148 SOLN 1,000 ML IV SCH (07:45)
[2022-11-10 08:57] VITALS: BMI 27.4
[2022-11-10 10:13] VITALS: RESP 18
[2022-11-10] MEDS: FERROUS SO4 325 MG TABLET (FP) PO SCH ×3 (11:22→17:15)
[2022-11-10] MEDS: PRENATAL VITAMINS W/ FOLIC ACID TABLET (FP) PO SCH (11:27)
[2022-11-10 12:22] LABS: HIV INTERPRETATION NEGATIVE (NEGATIVE)
[2022-11-10] MEDS: IBUPROFEN 600 MG TABLET (FP) PO PRN (22:12)
[2022-11-11 07:22] LABS: BASO % 0.2 % (0-2.0); EOS % 1.1 % (0-4.5); HEMATOCRIT 31.5 % (32.4-45.2); HEMOGLOBIN 10.4 GM/dL (10.7-15.3); LYMPH % 27.9 % (8-40); MCH 27.9 pg (25.7-33.7); MCHC 33.2 g/dl (32.0-36.0); MEAN CELL VOLUME 84.2 fl (80-96); MEAN PLT VOLUME 8.1 fl (7.5-11.1); NEUT % 64.8 % (42.8-82.8); PLATELET COUNT 241 10^3/uL (134-434); RBC 3.74 M/mm3 (3.60-5.2); RDW 13.1 % (11.6-15.6); WHITE BLOOD COUNT 14.5 K/mm3 (4.0-10.0)
[2022-11-11 08:43] VITALS: BP 88/55; PULSE 80; TEMP 98.5
[2022-11-11] MEDS: FERROUS SO4 325 MG TABLET (FP) PO SCH ×2 (09:00→11:57)
[2022-11-11] MEDS: IBUPROFEN 600 MG TABLET (FP) PO PRN (09:42)
[2022-11-11] MEDS: PRENATAL VITAMINS W/ FOLIC ACID TABLET (FP) PO SCH (09:42)
[2022-11-11] MEDS ORDERED: SENNOSIDES/DOCUSATE COMBO (SENNA PLUS) TABLET (UD) PO PRN (22:00)
== END 2022-11-11 14:05 | disposition home or self-care (01) | DRG 560 ==
LOC: JDEL 06:15 → JLDR 06:30 → J3W 10:15
PROVIDERS: ADMIT Obstetrics & Gynecology; ATTEND Obstetrics & Gynecology
PROC: 10E0XZZ Delivery of Products of Conception, External Approach (ICD-10-PCS; principal; 2022-11-10)
PROC: 10907ZC Drainage of Amniotic Fluid, Therapeutic from Products of Conception, Via Natural or Artificial Opening (ICD-10-PCS; 2022-11-10)
DX: O60.14X0 Preterm labor third trimester with preterm delivery third trimester, not applicable or unspecified (principal); O24.429 Gestational diabetes mellitus in childbirth, unspecified control; Z3A.26 26 weeks gestation of pregnancy; Z37.0 Single live birth
CPT/HCPCS: 36415; 59409; 80048; 82962; 85025; 85610; 85730; 86780; 86850; 86900; 86901; 87389; C9803-CS; U0003; U0005